=== PATIENT | female | born 1960 | race Caucasian/White ===

== ENCOUNTER 2019-07-10 13:17 | Outpatient (CLI) | payer MEDICARE, MEDICAID, SELFPAY ==
[2019-07-10 14:28] LABS: Basophils # 0.1 10^3/uL (0.0-0.1); Basophils % 0.5 %; Eosinophils # 0.1 10^3/uL (0.0-0.8); Eosinophils % 0.5 %; Hematocrit 43.6 % (37.0-47.0); Hemoglobin 13.7 g/dL (11.5-15.3); Lymphocytes # 3.3 10^3/uL (0.8-4.8); Lymphocytes % 25.8 %; Mean Corpuscular HGB Conc 31.4 g/dL (30.0-36.0); Mean Corpuscular Volume 92.2 fL (81-99); Mean Platelet Volume 10.1 fL (7.4-10.4); Monocytes # 0.8 10^3/uL (0.2-0.9); Monocytes % 6.1 %; Neutrophils # 8.5 10^3/uL (1.8-7.7); Neutrophils % 66.9 %; Nucleated Red Blood Cells % 0 %; Platelet Count 404 10^3/cmm (130-400); Red Blood Count 4.73 10^6/uL (4.1-5.3); Red Cell Distribution Width 15.1 % (12.1-15.1); White Blood Count 12.7 10^3/uL (4.0-10.0)
[2019-07-10 14:52] LABS: Alanine Aminotransferase 23 U/L (0-33); Albumin Level 4.7 g/dL (3.5-5.2); Alkaline Phosphatase 165 IU/L (35-105); Anion Gap 19.3 (5-19); Aspartate Amino Transferase 18 U/L (0-32); Blood Urea Nitrogen 16 mg/dL (6-20); Calcium 10.5 mg/Dl (8.6-10.0); Carbon Dioxide 23 mmol/L (22-29); Chloride 101 mmol/L (98-107); Globulin 3.1 g/dL (1.3-4.6); Glomerular Filtration Rate 56.7 mL/min (90-130); Glucose 107 mg/dL (74-109); Potassium 4.3 mmol/L (3.5-5.1); Sodium 139 mmol/L (136-145); Total Bilirubin 0.3 mg/dL (0.15-1.2); Total Protein 7.8 g/dL (6.6-8.7)
[2019-07-17 17:26] LABS: Chromogranin A 3579 ng/mL (25-140)
== END 2019-07-10 13:18 | disposition home or self-care (01) ==
LOC: ONCMED 13:58
PROVIDERS: Family Provider Physician Assistant; PCP Physician Assistant; Visit Provider Internal Medicine Medical Oncology
DX: C7A.8 Other malignant neuroendocrine tumors (principal)
CPT/HCPCS: 80053; 84260; 85025

== ENCOUNTER 2019-07-14 15:44 | Outpatient (CLI) | payer MEDICARE, MEDICAID, SELFPAY ==
[2019-07-14] MEDS: LANREOTIDE 120 MG/0.5 ML SUBCUT (16:38)
[2019-07-14 19:07] LABS: Add Urine Microscopic? NO
[2019-07-14 19:39] LABS: Bilirubin Urine 1+ (NEGATIVE); Blood Urine Trace (Negative); Glucose Urine UA Norm (Normal); Ketones Urine 1+ (Negative); Nitrate Urine Positive (Negative); Protein Urine Trace (Negative); Urine Appearance Cloudy (CLEAR); Urine Color Dark Yellow (Yellow); Urobilinogen Urine 1 mg/dL (Negative); pH Urine 5 (5-7)
[2019-07-14 19:40] LABS: Bacteria Urine 4+; Leukocyte Esterase Urine 2+ (Negative); RBC Urine RARE /hpf (0-2); WBC Urine >100 /hpf (0-5)
[2019-07-14 19:41] LABS: Add Urine Culture? Yes
--- NOTE | 2019-07-18 08:01 | ONC FU_ITS ---
Dr. Dempsey Patient Follow-Up Note Patient: Genoveva Kerr Unit #: [id number]: 1960 Dicatated By: Timo Dempsey M.D.Date of Visit:Jul 14, 2019 Onc Med Follow-up/Prog Note Chief Complaint: Pancreatic neuroendocrine tumor. History of Present Illness: This is a 58 year-old woman with metastatic pancreatic neuroendocrine tumor, WHO grade 2, stage IV (T4, Nx, M1). She had been having intermittent diarrhea for 2 years. She had been feeling tired all the time, and she also complained of persistent cough. She had seen Dr. Varner, and in November 2014 she had evaluation with CT abdomen/pelvis which showed a 2.3 x 3.5 x 3.4 cm homogeneous enhancing mass which appeared inseparable from the superior surface of the body of the pancreas. It was noted to abut the anterior margin of the celiac artery and anterior/superior margins of the common hepatic artery and splenic artery. The right hepatic lobe was noted to be enlarged, but there were no focal defects in the liver. Left adrenal gland showed a probable 9 mm adenoma. There was a 13 mm subpleural nodule in the anterior right lower lobe of uncertain significance. She was referred to Dr. Hare in [place]. Her subsequent evaluation included EUS in December, which apparently did confirm pancreatic neuroendocrine tumor. She had further evaluation with MRI, which showed 2 lesions in the liver, one of which showed typical findings of hemangioma. The other was felt to be possibly hemangioma versus possible metastatic lesion. There was no other evidence to suggest metastatic involvement. After discussion with patient, plan was made to proceed with subtotal left pancreatectomy with resection of the celiac arcade. In preparation for the procedure, she underwent endovascular coil occlusion of the common hepatic, proximal splenic, and distal celiac arteries on 04/05/2015. On 05/11/2015 she underwent exploratory laparotomy. At that time, she was noted to have a white nodule on the anterior surface of the stomach. It was located at the pylorus, and it measured 2 cm. It was removed by gastric wedge biopsy. Frozen section was consistent with neuroendocrine tumor. A needle core biopsy of the pancreas was obtained, but no further resection was attempted. Final pathology showed well-differentiated neuroendocrine tumor on both the gastric biopsy and the needle core biopsy of the pancreas. The Ki-67 on a pancreatic biopsy showed a labeling index of 3%, qualifying for WHO grade 2. I had seen her initially on 06/04/2015. At that time she complained of significant fatigue and she still had intermittent diarrhea. Her weight at that point was still down 25 lbs. She also reported having persistent cough, and she complained of having hot flashes and occasional sweating. Her subsequent laboratory evaluation did show a slightly elevated chromogranin A level at 11 nmol/L, normal range 0-5. VIP level was normal less than 13 pg/mL. 24-hour urine 5-HIAA also was normal at 4 mg, normal range up to 15 mg. She was admitted to the hospital on 08/14/2015 after presenting to the emergency room with intractable nausea and vomiting. She reported having postprandial pain in the epigastric area and she also reported having diarrhea. CT abdomen/pelvis reported small bowel mucosal thickening consistent with nonspecific enteritis. The duodenum was noted to be mildly dilated. There were no definite obstructive changes. A 1.3 cm lesion was noted at the right lung base, new from the previous studies. The pancreas was noted be obscured by artifact. However, I did review that study with one of our radiologists, and the pancreatic mass was not able be completely visualized because of interval placement of surgical clips, but it did appear to be similar to the previous study. There were a few small nodes in that area which appeared to be new. In January 2016 she was again admitted to the hospital with nausea/vomiting, abdominal pain, and diarrhea. CT abdomen/pelvis at that time showed fluid within the small bowel and colon without evidence of mesenteric lymphadenopathy or bowel wall thickening, felt to possibly reflect viral gastroenteritis. There was stable lymphadenopathy in the upper abdomen in the left adrenal nodule also appeared stable. There was stable reticulonodular interstitial thickening in the visualized portions of both lungs. There was no evidence of new metastatic disease. The illness resolved with conservative management. A repeat CT of the abdomen/pelvis on 07/17/2016 showed stable findings, and she continued on observation/expectant management. Her medical illnesses are otherwise limited to COPD and degenerative arthritis. She does have a history of smoking 1 pack of cigarettes daily for 20 years. She quit smoking in April 2015. INTERIM HISTORY: She was seen for a follow-up visit on 03/14/2018. At that point she had developed more consistent carcinoid type symptoms including hot flashes/sweating and diarrhea. Her chromogranin a level had increased significantly to 80 nmol/L compared to 35 nmol/L in December 2016. Her whole blood serotonin level was also elevated at 484/200 ng/mL. Her CT of the chest, abdomen, and pelvis showed new bilateral pulmonary nodules felt to be possibly postinflammatory or atypical infectious process versus metastatic disease. There were unchanged right lower lung zone tree-in-bud nodular opacities, and there was chronic emphysema. The abdomen/pelvis showed interval enlargement of the hepatic mass with development of new upper abdominal retroperitoneal and matias hepatis adenopathy. Given those findings, she began on treatment somatuline Depot 120 mg monthly. She received her initial injection on 05/02/2018 and she returned for a 2nd injection 05/30/2018. The 3rd was delayed until 07/15/2018. She had significant improvement in the hot flashes/sweating and in the diarrhea after starting the somatuline. She then continued treatment more consistently on a monthly schedule. Her repeat CT scans of the chest, abdomen, and pelvis on 04/04/2019 showed resolution of previously described pulmonary nodules. The abdomen/pelvis showed slight increase in the abdominal mass measuring 6.4 x 8.1 x 9.55 cm. It was reported to be in the left lobe of the liver, but it actually reflected the pancreatic neoplasm impinging on the liver. There were no other apparent areas of involvement. She is seen for a follow-up visit. She has been feeling okay, though she does have limited activity tolerance, and her energy has been gradually declining. She is still able to do light work. ECOG score is 1. Her appetite is still good. She has not had fever or night sweats. She has occasional flushing spells. She has shortness of breath. She says her inhalers are helping. She has cough associated with sinus drainage. She does not complain of chest pain. She does have some abdominal pain, and she has diarrhea, but just occasionally. Recently she has had some burning with urination. Her neck has been sore. She also has pain in her lower back, she says her hips have been hurting a little more. She has no focal neurologic symptoms. Medications: Advair Diskus 1 (250-50 mcg/dose) Aerosol Powder, Breath Activated Inhalation b.i.d., [facility] Vitamin C 1 - 2 Tablet (of 500 mg) Tablet, chewable Oral daily, Hydrocodone-Acetaminophen 1 (10-325 mg) Tablet Oral q 4 hours PRN, Imodium A-D 1 Capsule Oral PRN, Pantoprazole Sodium 1 Tablet Tablet Delayed Release Oral daily PRN, Tylenol Cold Max 2 tablespoonful(s) Liquid Oral b.i.d. Allergies: Codeine Sulfate Review of Systems: Constitutional - Her energy is slowly deteriorating. She does some light work at home. Her appetite is good and her weight is up a couple of pounds. No fever or chills. She has occasional hot flashes and sweating at night. ECOG score is 1, ENMT - She has sinus drainage. No mouth sores. No sore throat or difficulty swallowing, Hematologic/Lymphatic - No abnormal bruising or bleeding, Respiratory - She has shortness of breath. She has coughing fits. No pleuritic pain or hemoptysis, Cardiovascular - No angina pain. No palpitations, Gastrointestinal - No nausea or vomiting. She has occasional heartburn. She has occasional diarrhea. No blood in the stool or black stools. She has pain in her lower left quadrant, Genitourinary (F) - No dysuria or hematuria. No urinary frequency. No urgency or incontinence. She has burning and painful urination, Musculoskeletal - Her lower back and hip pain has been a little worse recently, due to the colder weather, Integumentary - No skin complications. , Neurologic - No headache. She occasionally feels dizzy and light-headed. No numbness/paresthesias or other focal neurologic symptoms, Psychiatric - No anxiety or depression. No insomnia. Vital Signs: Performed on Jul 14, 2019 15:50 Height - 64.00 in Weight - 135.4 lbs (HIGH) BSA - 1.66 sq.m BMI - 23.24 Temperature - 96.9 F (LOW) Pulse - 87 /min Respiration - 16 /min BP - 133/53 mm(hg) O2 Sat - 97 % Pain - 4 Physical Examination: Constitutional - She looks pretty good generally, Eyes - Sclerae nonicteric. Conjunctivae clear, ENMT - No lesions noted in the oral cavity, Hematologic/Lymphatic - No cervical, clavicular, or axillary adenopathy, Respiratory - Lungs show diminished air movement bilaterally. There are scattered rales present. There is no wheezing, Cardiovascular - Heart rhythm is regular. There is no murmur, gallop, or rub noted, Abdomen - Mildly distended but soft. Liver and spleen are not enlarged. There is no abdominal mass or ascites noted and there is no inguinal adenopathy, Extremities - No edema, Neurologic - There are no focal neurologic deficits noted. Lab/Imaging: CBC shows hemoglobin 13.7 g, white blood cell count 12,700, and platelet count 404,000. CHEM profile shows mildly elevated alkaline phosphatase at 165/105 IU/L. The other liver enzymes are normal. The neuroendocrine markers are pending. Impression: 1. The patient has well differentiated pancreatic neuroendocrine tumor, WHO grade 2, stage IV (T4, Nx, M1). She underwent endovascular coil embolization to common hepatic, proximal splenic, and distal celiac arteries on 04/05/2015 followed by exploratory laparotomy with gastric wedge biopsy and needle core biopsy of the pancreas on 05/11/2015. 2. She has significant anxiety/depression/emotional lability. 3. She also has signicant underlying COPD. Her other medical illnesses include: 4. Degenerative arthritis. 5. Tobacco dependence (cigarettes), in remission. Overall, her management had been difficult as she had been very inconsistent with her symptomatology and very inconsistent with her follow-up. However, as of her follow-up visit in March 2018 there was significant worsening of her carcinoid type symptoms, a significant increase in her chromogranin A level, and evidence of disease progression by CT scan. In May 2018 she started treatment with Somatuline Depot 120 mg monthly. During subsequent follow-up she had improvement in her neuroendocrine associated symptoms. Her chromogranin A levels, though, have remained significantly elevated. Her repeat CT scns in April 2019 showed just a slight further increase in the pancreatic area mass. Overall, she has been showing gradual decline in her activity tolerance, some component of which may related to her underlying COPD and to degenerative arthritis. Her neuroendocrine symptoms remain adequately controlled. Plan: She will continue treatment with Somatuline Depot 120 mg by intramuscular injection monthly. Her other medications will remain the same. We discussed her further treatment. With her underlying lung disease she would not be a good candidate for an extensive surgical procedure, and conservative management would appear to be the best option for her. Signed By: Timo Dempsey M.D. <<Signature on File>>
== END 2019-07-14 15:45 | disposition home or self-care (01) ==
PROVIDERS: Family Provider Physician Assistant; PCP Physician Assistant; Visit Provider Internal Medicine Medical Oncology
DX: C7A.8 Other malignant neuroendocrine tumors (principal); C7B.8 Other secondary neuroendocrine tumors; R30.0 Dysuria; J44.9 Chronic obstructive pulmonary disease, unspecified; M19.90 Unspecified osteoarthritis, unspecified site; F41.8 Other specified anxiety disorders; Z79.899 Other long term (current) drug therapy; Z79.51 Long term (current) use of inhaled steroids; Z79.891 Long term (current) use of opiate analgesic; Z87.891 Personal history of nicotine dependence; Z90.411 Acquired partial absence of pancreas
CPT/HCPCS: 81001; 81003; 83497; 87077; 87086; 87186; 96372; 99214; J1930

== ENCOUNTER 2019-08-18 13:42 | Outpatient (CLI) | payer MEDICARE, MEDICAID, SELFPAY ==
[2019-08-18] MEDS: LANREOTIDE 120 MG/0.5 ML SUBCUT (14:15)
== END 2019-08-18 13:43 | disposition home or self-care (01) ==
LOC: ONCMED 13:48
PROVIDERS: Family Provider Physician Assistant; PCP Physician Assistant; Visit Provider Internal Medicine Medical Oncology
DX: C7A.8 Other malignant neuroendocrine tumors (principal)
CPT/HCPCS: 96372; J1930

== ENCOUNTER 2019-09-16 15:53 | Outpatient (CLI) | payer MEDICARE, MEDICAID, SELFPAY ==
[2019-09-16] MEDS: LANREOTIDE 120 MG/0.5 ML SUBCUT (16:10)
== END 2019-09-16 15:54 | disposition home or self-care (01) ==
LOC: ONCMED 15:53
PROVIDERS: Family Provider Physician Assistant; PCP Physician Assistant; Visit Provider Internal Medicine Medical Oncology
DX: C7A.8 Other malignant neuroendocrine tumors (principal)
CPT/HCPCS: 96372; J1930

== ENCOUNTER 2019-10-14 09:35 | Outpatient (CLI) | payer MEDICARE, MEDICAID, SELFPAY ==
[2019-10-14 10:50] LABS: Basophils # 0.1 10^3/uL (0.0-0.1); Basophils % 0.8 %; Eosinophils # 0.1 10^3/uL (0.0-0.8); Hematocrit 41.7 % (37.0-47.0); Hemoglobin 12.7 g/dL (11.5-15.3); Lymphocytes # 3.2 10^3/uL (0.8-4.8); Lymphocytes % 36.9 %; Mean Corpuscular HGB Conc 30.5 g/dL (30.0-36.0); Mean Corpuscular Hemoglobin 27.3 pg (28.0-34.0); Mean Corpuscular Volume 89.7 fL (81-99); Mean Platelet Volume 9.4 fL (7.4-10.4); Monocytes # 0.4 10^3/uL (0.2-0.9); Monocytes % 4.5 %; Neutrophils # 4.9 10^3/uL (1.8-7.7); Neutrophils % 56.3 %; Nucleated Red Blood Cells % 0 %; Platelet Count 425 10^3/cmm (130-400); Red Blood Count 4.65 10^6/uL (4.1-5.3); Red Cell Distribution Width 14.9 % (12.1-15.1); White Blood Count 8.7 10^3/uL (4.0-10.0)
[2019-10-14 11:07] LABS: Alanine Aminotransferase 16 U/L (0-33); Albumin Level 4.2 g/dL (3.5-5.2); Alkaline Phosphatase 169 IU/L (35-105); Anion Gap 16.7 (5-19); Aspartate Amino Transferase 21 U/L (0-32); Blood Urea Nitrogen 20 mg/dL (8-23); Carbon Dioxide 25 mmol/L (22-29); Chloride 101 mmol/L (98-107); Globulin 3.7 g/dL (1.3-4.6); Glomerular Filtration Rate 63.9 mL/min (90-130); Glucose 112 mg/dL (65-115); Osmolality Calculated 285 mOsm/kg (285-295); Potassium 3.7 mmol/L (3.5-5.1); Sodium 139 mmol/L (136-145); Total Bilirubin 0.2 mg/dL (0.15-1.2); Total Protein 7.9 g/dL (6.6-8.7)
[2019-10-18 16:26] LABS: Chromogranin A 4902 ng/mL (25-140)
[2019-10-18 21:26] LABS: Serotonin Whole Blood 157 ng/mL (56-244)
== END 2019-10-14 09:36 | disposition home or self-care (01) ==
LOC: ONCMED 10-15 15:29
PROVIDERS: Family Provider Physician Assistant; PCP Physician Assistant; Visit Provider Internal Medicine Medical Oncology
DX: C7A.8 Other malignant neuroendocrine tumors (principal)
CPT/HCPCS: 80053; 84260; 85025; 86316

== ENCOUNTER 2019-10-16 11:02 | Outpatient (CLI) | payer MEDICARE, MEDICAID, SELFPAY ==
[2019-10-22 09:25] LABS: 24 Hour Urine Volume 1300 mL/24 h; 5-HIAA, 24 Hour Urine 2.7 mg/24 h (<=6.0)
== END 2019-10-16 11:03 | disposition home or self-care (01) ==
LOC: ONCMED 11:03
PROVIDERS: Family Provider Physician Assistant; PCP Physician Assistant; Visit Provider Internal Medicine Medical Oncology
DX: C7A.8 Other malignant neuroendocrine tumors (principal)
CPT/HCPCS: 83497

== ENCOUNTER 2019-10-27 12:55 | Outpatient (CLI) | payer MEDICARE, MEDICAID, SELFPAY ==
[2019-10-27] MEDS: LANREOTIDE 120 MG/0.5 ML SUBCUT (13:44)
--- NOTE | 2019-10-29 14:59 | ONC FU_ITS ---
Dr. Dempsey Patient Follow-Up Note Patient: Genoveva Kerr Unit #: [id number]: 1960 Dicatated By: Timo Dempsey M.D.Date of Visit:Oct 27, 2019 Onc Med Follow-up/Prog Note Chief Complaint: Pancreatic neuroendocrine tumor. History of Present Illness: This is a 59 year-old woman with metastatic pancreatic neuroendocrine tumor, WHO grade 2, stage IV (T4, Nx, M1). She had been having intermittent diarrhea for 2 years. She had been feeling tired all the time, and she also complained of persistent cough. She had seen Dr. Varner, and in November 2014 she had evaluation with CT abdomen/pelvis which showed a 2.3 x 3.5 x 3.4 cm homogeneous enhancing mass which appeared inseparable from the superior surface of the body of the pancreas. It was noted to abut the anterior margin of the celiac artery and anterior/superior margins of the common hepatic artery and splenic artery. The right hepatic lobe was noted to be enlarged, but there were no focal defects in the liver. Left adrenal gland showed a probable 9 mm adenoma. There was a 13 mm subpleural nodule in the anterior right lower lobe of uncertain significance. She was referred to Dr. Hare in [place]. Her subsequent evaluation included EUS in December, which apparently did confirm pancreatic neuroendocrine tumor. She had further evaluation with MRI, which showed 2 lesions in the liver, one of which showed typical findings of hemangioma. The other was felt to be possibly hemangioma versus possible metastatic lesion. There was no other evidence to suggest metastatic involvement. After discussion with patient, plan was made to proceed with subtotal left pancreatectomy with resection of the celiac arcade. In preparation for the procedure, she underwent endovascular coil occlusion of the common hepatic, proximal splenic, and distal celiac arteries on 04/05/2015. On 05/11/2015 she underwent exploratory laparotomy. At that time, she was noted to have a white nodule on the anterior surface of the stomach. It was located at the pylorus, and it measured 2 cm. It was removed by gastric wedge biopsy. Frozen section was consistent with neuroendocrine tumor. A needle core biopsy of the pancreas was obtained, but no further resection was attempted. Final pathology showed well-differentiated neuroendocrine tumor on both the gastric biopsy and the needle core biopsy of the pancreas. The Ki-67 on a pancreatic biopsy showed a labeling index of 3%, qualifying for WHO grade 2. I had seen her initially on 06/04/2015. At that time she complained of significant fatigue and she still had intermittent diarrhea. Her weight at that point was still down 25 lbs. She also reported having persistent cough, and she complained of having hot flashes and occasional sweating. Her subsequent laboratory evaluation did show a slightly elevated chromogranin A level at 11 nmol/L, normal range 0-5. VIP level was normal less than 13 pg/mL. 24-hour urine 5-HIAA also was normal at 4 mg, normal range up to 15 mg. She was admitted to the hospital on 08/14/2015 after presenting to the emergency room with intractable nausea and vomiting. She reported having postprandial pain in the epigastric area and she also reported having diarrhea. CT abdomen/pelvis reported small bowel mucosal thickening consistent with nonspecific enteritis. The duodenum was noted to be mildly dilated. There were no definite obstructive changes. A 1.3 cm lesion was noted at the right lung base, new from the previous studies. The pancreas was noted be obscured by artifact. However, I did review that study with one of our radiologists, and the pancreatic mass was not able be completely visualized because of interval placement of surgical clips, but it did appear to be similar to the previous study. There were a few small nodes in that area which appeared to be new. In January 2016 she was again admitted to the hospital with nausea/vomiting, abdominal pain, and diarrhea. CT abdomen/pelvis at that time showed fluid within the small bowel and colon without evidence of mesenteric lymphadenopathy or bowel wall thickening, felt to possibly reflect viral gastroenteritis. There was stable lymphadenopathy in the upper abdomen in the left adrenal nodule also appeared stable. There was stable reticulonodular interstitial thickening in the visualized portions of both lungs. There was no evidence of new metastatic disease. The illness resolved with conservative management. A repeat CT of the abdomen/pelvis on 07/17/2016 showed stable findings, and she continued on observation/expectant management. Her medical illnesses are otherwise limited to COPD and degenerative arthritis. She does have a history of smoking 1 pack of cigarettes daily for 20 years. She quit smoking in April 2015. INTERIM HISTORY: She was seen for a follow-up visit on 03/14/2018. At that point she had developed more consistent carcinoid type symptoms including hot flashes/sweating and diarrhea. Her chromogranin a level had increased significantly to 80 nmol/L compared to 35 nmol/L in December 2016. Her whole blood serotonin level was also elevated at 484/200 ng/mL. Her CT of the chest, abdomen, and pelvis showed new bilateral pulmonary nodules felt to be possibly postinflammatory or atypical infectious process versus metastatic disease. There were unchanged right lower lung zone tree-in-bud nodular opacities, and there was chronic emphysema. The abdomen/pelvis showed interval enlargement of the hepatic mass with development of new upper abdominal retroperitoneal and matias hepatis adenopathy. Given those findings, she began on treatment somatuline Depot 120 mg monthly. She received her initial injection on 05/02/2018 and she returned for a 2nd injection 05/30/2018. The 3rd was delayed until 07/15/2018. She had significant improvement in the hot flashes/sweating and in the diarrhea after starting the somatuline. Her repeat CT scans of the chest, abdomen, and pelvis on 04/04/2019 showed resolution of previously described pulmonary nodules. The abdomen/pelvis showed slight increase in the abdominal mass measuring 6.4 x 8.1 x 9.55 cm. It was reported to be in the left lobe of the liver, but it actually reflected the pancreatic neoplasm impinging on the liver. There were no other apparent areas of involvement. She continued treatment with somatuline on a monthly schedule. She is seen for a follow-up visit. He has been feeling pretty good generally. She does have some limitation in her activity tolerance, but she is able to do light work. Her ECOG score is 1. She says her appetite was messed up and she has lost a little weight. She has not had fever or hot flashes. She has sweating now and then. She tends to have plugged up sinuses in the morning. She has shortness of breath, and she has been spitting up yellow mucus. She does not complain of chest pain. She is sometimes nauseated in the morning. Her stomach sometimes feels tight. Bowel function has been adequate with prunes. She has had no diarrhea. She has no complaints. She has chronic pain, which varies from day-to-day. It is adequately managed with her medication. She has just occasional headache. She has no focal neurologic symptoms. She intermittently does have problems with nerves . Medications: Advair Diskus 1 (250-50 mcg/dose) Aerosol Powder, Breath Activated Inhalation b.i.d., [facility] Vitamin C 1 - 2 Tablet (of 500 mg) Tablet, chewable Oral daily, Hydrocodone-Acetaminophen 1 (10-325 mg) Tablet Oral q 4 hours PRN, Pantoprazole Sodium 1 Tablet Tablet Delayed Release Oral daily PRN Allergies: Codeine Sulfate Review of Systems: Constitutional - She is feeling good. She has pretty good energy. he has been doing some outside work. Her appetite is improving and her weight is stable. No fever, chills, or hot flashes. She is having occasional sweating episodes. ECOG score is 1, ENMT - She is taking Claritin for persitant sinus congestion/drainage. No mouth sores. No sore throat or difficulty swallowing, Hematologic/Lymphatic - No abnormal bruising or bleeding, Respiratory - She gets shortness of breath with exertion. No cough. No pleuritic pain or hemoptysis, Cardiovascular - No angina pain. No palpitations, Gastrointestinal - She has mild nausea in the morning. No vomiting. No heartburn or acid reflux. No diarrhea or constipation. No blood in the stool or black stools, Genitourinary (F) - No dysuria or hematuria. No urinary frequency. No urgency or incontinence, Musculoskeletal - Her pain is adequately managed with hydrocodone 10-325, Integumentary - No skin complications, Neurologic - No headache or dizziness. No numbness/paresthesias or other focal neurologic symptoms, Psychiatric - No anxiety or depression. No insomnia. Vital Signs: Performed on Oct 27, 2019 13:03 Height - 64.00 in Weight - 129.6 lbs (LOW) BSA - 1.63 sq.m BMI - 22.25 Temperature - 97.7 F (LOW) Pulse - 72 /min Respiration - 24 /min BP - 125/58 mm(hg) O2 Sat - 96 % Pain - 0 Physical Examination: Constitutional - She looks pretty good generally, Eyes - Sclerae nonicteric. Conjunctivae clear, ENMT - No lesions noted in the oral cavity, Hematologic/Lymphatic - No cervical, clavicular, or axillary adenopathy, Respiratory - Lungs sound clear with diminished air movement bilaterally, Cardiovascular - Heart rhythm is regular. There is no murmur, gallop, or rub noted, Abdomen - Mildly distended but soft. Liver and spleen are not enlarged. There is no abdominal mass or ascites noted and there is no inguinal adenopathy, Extremities - No edema, Neurologic - There are no focal neurologic deficits noted. Lab/Imaging: Test performed on Oct 14, 2019 09:35 Serotonin, Serum 157 ng/mL Sodium 139 mmol/L Potassium 3.7 mmol/L Chloride 101 mmol/L CO2 25 mmol/L Anion Gap 16.7 BUN 20 mg/dL Creatinine 0.9 mg/dL Cr Clearance (Est) 64.4500 mL/min eGFR 63.9 mL/min Glucose 112 mg/dL Calcium 10.0 mg/dL Protein, Total 7.9 g/dL Albumin 4.2 g/dL Globulin 3.7 g/dL Bilirubin, Total 0.2 mg/dL ALT (SGPT) 16 U/L AST (SGOT) 21 U/L Alkaline Phosphatase 169 IU/L WBC 8.7 10 3/uL RBC 4.65 10 6/uL HGB 12.7 g/dL HCT 41.7 % MCV 89.7 fL MCH 27.3 pg MCHC 30.5 g/dL RDW 14.9 % Platelet Count 425 10 3/cmm MPV 9.4 fL Neutrophils 4.9 10 3/uL Lymphocytes 3.2 10 3/uL Monocytes 0.4 10 3/uL Eosinophils 0.1 10 3/uL Basophils 0.1 10 3/uL Neutrophil % 56.3 % Lymphocyte % 36.9 % Monocyte % 4.5 % Eosinophil % 1.0 % Basophils % 0.8 % Chromogranin A 4902 ng/mL Impression: 1. The patient has well differentiated pancreatic neuroendocrine tumor, WHO grade 2, stage IV (T4, Nx, M1). She underwent endovascular coil embolization to common hepatic, proximal splenic, and distal celiac arteries on 04/05/2015 followed by exploratory laparotomy with gastric wedge biopsy and needle core biopsy of the pancreas on 05/11/2015. 2. She has significant anxiety/depression/emotional lability. 3. She also has signicant underlying COPD. Her other medical illnesses include: 4. Degenerative arthritis. 5. Tobacco dependence (cigarettes), in remission. Overall, her management had been difficult as she had been very inconsistent with her symptomatology and very inconsistent with her follow-up. However, as of her follow-up visit in March 2018 there was significant worsening of her carcinoid type symptoms, a significant increase in her chromogranin A level, and evidence of disease progression by CT scan. In May 2018 she started treatment with Somatuline Depot 120 mg monthly. During subsequent follow-up she had improvement in her neuroendocrine associated symptoms. Her chromogranin A levels, though, have remained significantly elevated. Her repeat CT scns in April 2019 showed just a slight further increase in the pancreatic area mass. Overall, she has been showing gradual decline in her activity tolerance, some component of which may related to her underlying COPD and to degenerative arthritis. Her neuroendocrine symptoms remain adequately controlled. Plan: She continues treatment with Somatuline Depot 120 mg by intramuscular injection monthly. She will be given a prescription for flonase nasal spray, and she also will be given antibiotic coverage for sinusitis. Her other medications will remain the same. I will see her again in 3 months. Signed By: Timo Dempsey M.D. <<Signature on File>>
== END 2019-10-27 12:56 | disposition home or self-care (01) ==
LOC: ONCMED 12:55
PROVIDERS: Family Provider Physician Assistant; PCP Physician Assistant; Visit Provider Internal Medicine Medical Oncology
DX: C7A.8 Other malignant neuroendocrine tumors (principal); C25.4 Malignant neoplasm of endocrine pancreas; F41.8 Other specified anxiety disorders; J44.9 Chronic obstructive pulmonary disease, unspecified; M19.90 Unspecified osteoarthritis, unspecified site; F17.211 Nicotine dependence, cigarettes, in remission; J32.9 Chronic sinusitis, unspecified; Z79.899 Other long term (current) drug therapy
CPT/HCPCS: 96372; 99214; J1930

== ENCOUNTER 2019-12-02 13:15 | Outpatient (CLI) | payer MEDICARE, MEDICAID, SELFPAY ==
[2019-12-02] MEDS: LANREOTIDE 120 MG/0.5 ML SUBCUT (13:35)
== END 2019-12-02 13:16 | disposition home or self-care (01) ==
LOC: ONCMED 13:18
PROVIDERS: Family Provider Physician Assistant; PCP Physician Assistant; Visit Provider Internal Medicine Medical Oncology
DX: C25.4 Malignant neoplasm of endocrine pancreas (principal); C7A.8 Other malignant neuroendocrine tumors; J44.9 Chronic obstructive pulmonary disease, unspecified; M19.90 Unspecified osteoarthritis, unspecified site; Z79.899 Other long term (current) drug therapy
CPT/HCPCS: 96372; J1930

== ENCOUNTER 2020-01-01 13:38 | Outpatient (CLI) | payer MEDICARE, MEDICAID, SELFPAY ==
[2020-01-01] MEDS: LANREOTIDE 120 MG/0.5 ML SUBCUT (14:05)
== END 2020-01-01 13:39 | disposition home or self-care (01) ==
LOC: ONCMED 13:43
PROVIDERS: PCP Physician Assistant; Visit Provider Internal Medicine Medical Oncology
DX: C25.4 Malignant neoplasm of endocrine pancreas (principal); C7A.8 Other malignant neuroendocrine tumors; J44.9 Chronic obstructive pulmonary disease, unspecified; M19.90 Unspecified osteoarthritis, unspecified site; F41.9 Anxiety disorder, unspecified; F32.9 Major depressive disorder, single episode, unspecified; F17.211 Nicotine dependence, cigarettes, in remission
CPT/HCPCS: 96372; J1930

== ENCOUNTER 2020-01-28 13:14 | Outpatient (CLI) | payer MEDICARE, MEDICAID, SELFPAY ==
[2020-01-28 15:04] LABS: Basophils # 0.1 10^3/uL (0.0-0.1); Basophils % 0.5 %; Eosinophils % 0.4 %; Hematocrit 40.7 % (37.0-47.0); Hemoglobin 12.6 g/dL (11.5-15.3); Lymphocytes # 2.1 10^3/uL (0.8-4.8); Lymphocytes % 20.4 %; Mean Corpuscular Hemoglobin 28.3 pg (28.0-34.0); Mean Corpuscular Volume 91.5 fL (81-99); Mean Platelet Volume 10.1 fL (7.4-10.4); Monocytes # 0.4 10^3/uL (0.2-0.9); Monocytes % 3.8 %; Neutrophils # 7.52 10^3/uL (1.8-7.7); Neutrophils % 74.6 %; Nucleated Red Blood Cells % 0 %; Platelet Count 352 10^3/cmm (130-400); Red Blood Count 4.45 10^6/uL (4.1-5.3); Red Cell Distribution Width 15.5 % (12.1-15.1); White Blood Count 10.1 10^3/uL (4.0-10.0)
[2020-01-28 15:22] LABS: Alanine Aminotransferase 62 U/L (0-33); Albumin Level 4.5 g/dL (3.5-5.2); Alkaline Phosphatase 172 IU/L (35-105); Blood Urea Nitrogen 13 mg/dL (8-23); Calcium 8.9 mg/dL (8.5-10.5); Carbon Dioxide 21 mmol/L (22-29); Chloride 102 mmol/L (98-107); Globulin 3.7 g/dL (1.3-4.6); Glomerular Filtration Rate 73.2 mL/min (90-130); Glucose 233 mg/dL (65-115); Osmolality Calculated 286 mOsm/kg (285-295); Sodium 136 mmol/L (136-145); Total Bilirubin 0.2 mg/dL (0.15-1.2); Total Protein 8.2 g/dL (6.6-8.7)
[2020-01-28 16:10] LABS: Anion Gap 17.1 (5-19); Aspartate Amino Transferase 61 U/L (0-32); Potassium 4.1 mmol/L (3.5-5.1)
[2020-02-02 09:45] LABS: Chromogranin A 5794 ng/mL (25-140)
[2020-02-05 11:10] LABS: Serotonin Whole Blood 186 ng/mL (56-244)
== END 2020-01-28 13:15 | disposition home or self-care (01) ==
LOC: ONCMED 15:17
PROVIDERS: PCP Physician Assistant; Visit Provider Internal Medicine Medical Oncology
DX: C7A.8 Other malignant neuroendocrine tumors (principal)
CPT/HCPCS: 80053; 84260; 85025; 86316

== ENCOUNTER 2020-02-11 14:22 | Outpatient (CLI) | payer MEDICARE, MEDICAID, SELFPAY ==
[2020-02-11] MEDS: LANREOTIDE 120 MG/0.5 ML SUBCUT (15:42)
--- NOTE | 2020-02-14 17:35 | ONC FU_ITS ---
Esteban Sifuentes Patient Note Patient: Genoveav Kerr Unit #: [id number]: 1960 Dictated By: Bud MendozaDate of Visit: Feb 11, 2020 Onc MED Follow-Up/Prog Note Chief Complaint: Pancreatic neuroendocrine tumor. History of Present Illness: Ms Kerr is a 59 year-old woman with metastatic pancreatic neuroendocrine tumor, WHO grade 2, stage IV (T4, Nx, M1). She had been having intermittent diarrhea for 2 years. She had been feeling tired all the time, and she also complained of persistent cough. She had seen Dr. Varner, and in November 2014 she had evaluation with CT abdomen/pelvis which showed a 2.3 x 3.5 x 3.4 cm homogeneous enhancing mass which appeared inseparable from the superior surface of the body of the pancreas. It was noted to abut the anterior margin of the celiac artery and anterior/superior margins of the common hepatic artery and splenic artery. The right hepatic lobe was noted to be enlarged, but there were no focal defects in the liver. Left adrenal gland showed a probable 9 mm adenoma. There was a 13 mm subpleural nodule in the anterior right lower lobe of uncertain significance. She was referred to Dr. Hare in [place]. Her subsequent evaluation included EUS in December, which apparently did confirm pancreatic neuroendocrine tumor. She had further evaluation with MRI, which showed 2 lesions in the liver, one of which showed typical findings of hemangioma. The other was felt to be possibly hemangioma versus possible metastatic lesion. There was no other evidence to suggest metastatic involvement. After discussion with patient, plan was made to proceed with subtotal left pancreatectomy with resection of the celiac arcade. In preparation for the procedure, she underwent endovascular coil occlusion of the common hepatic, proximal splenic, and distal celiac arteries on 04/05/2015. On 05/11/2015 she underwent exploratory laparotomy. At that time, she was noted to have a white nodule on the anterior surface of the stomach. It was located at the pylorus, and it measured 2 cm. It was removed by gastric wedge biopsy. Frozen section was consistent with neuroendocrine tumor. A needle core biopsy of the pancreas was obtained, but no further resection was attempted. Final pathology showed well-differentiated neuroendocrine tumor on both the gastric biopsy and the needle core biopsy of the pancreas. The Ki-67 on a pancreatic biopsy showed a labeling index of 3%, qualifying for WHO grade 2. Dr Dempsey had seen her initially on 06/04/2015. At that time she complained of significant fatigue and she still had intermittent diarrhea. Her weight at that point was still down 25 lbs. She also reported having persistent cough, and she complained of having hot flashes and occasional sweating. Her subsequent laboratory evaluation did show a slightly elevated chromogranin A level at 11 nmol/L, normal range 0-5. VIP level was normal less than 13 pg/mL. 24-hour urine 5-HIAA also was normal at 4 mg, normal range up to 15 mg. She was admitted to the hospital on 08/14/2015 after presenting to the emergency room with intractable nausea and vomiting. She reported having postprandial pain in the epigastric area and she also reported having diarrhea. CT abdomen/pelvis reported small bowel mucosal thickening consistent with nonspecific enteritis. The duodenum was noted to be mildly dilated. There were no definite obstructive changes. A 1.3 cm lesion was noted at the right lung base, new from the previous studies. The pancreas was noted be obscured by artifact. However, I did review that study with one of our radiologists, and the pancreatic mass was not able be completely visualized because of interval placement of surgical clips, but it did appear to be similar to the previous study. There were a few small nodes in that area which appeared to be new. In January 2016 she was again admitted to the hospital with nausea/vomiting, abdominal pain, and diarrhea. CT abdomen/pelvis at that time showed fluid within the small bowel and colon without evidence of mesenteric lymphadenopathy or bowel wall thickening, felt to possibly reflect viral gastroenteritis. There was stable lymphadenopathy in the upper abdomen in the left adrenal nodule also appeared stable. There was stable reticulonodular interstitial thickening in the visualized portions of both lungs. There was no evidence of new metastatic disease. The illness resolved with conservative management. A repeat CT of the abdomen/pelvis on 07/17/2016 showed stable findings, and she continued on observation/expectant management. Her medical illnesses are otherwise limited to COPD and degenerative arthritis. She does have a history of smoking 1 pack of cigarettes daily for 20 years. She quit smoking in April 2015. INTERIM HISTORY: She was seen for a follow-up visit on 03/14/2018. At that point she had developed more consistent carcinoid type symptoms including hot flashes/sweating and diarrhea. Her chromogranin a level had increased significantly to 80 nmol/L compared to 35 nmol/L in December 2016. Her whole blood serotonin level was also elevated at 484/200 ng/mL. Her CT of the chest, abdomen, and pelvis showed new bilateral pulmonary nodules felt to be possibly postinflammatory or atypical infectious process versus metastatic disease. There were unchanged right lower lung zone tree-in-bud nodular opacities, and there was chronic emphysema. The abdomen/pelvis showed interval enlargement of the hepatic mass with development of new upper abdominal retroperitoneal and matias hepatis adenopathy. Given those findings, she began on treatment somatuline Depot 120 mg monthly. She received her initial injection on 05/02/2018 and she returned for a 2nd injection 05/30/2018. The 3rd was delayed until 07/15/2018. She had significant improvement in the hot flashes/sweating and in the diarrhea after starting the somatuline. Her repeat CT scans of the chest, abdomen, and pelvis on 04/04/2019 showed resolution of previously described pulmonary nodules. The abdomen/pelvis showed slight increase in the abdominal mass measuring 6.4 x 8.1 x 9.55 cm. It was reported to be in the left lobe of the liver, but it actually reflected the pancreatic neoplasm impinging on the liver. There were no other apparent areas of involvement. She continued treatment with somatuline on a monthly schedule. Ms Aguilera is here today for followup. She is due for monthly somatuline. She states she is doing ok today. 2 weeks ago she had nasusea/vomiting and diarrhea/dizziness as a sudden onset. She states she was sick for a couple of days but those symptoms have now resolved. She has no new concerns today. She did have her labs drawn on 01/28/2020 and then got the bug and had to reschedule her appointment. She states her breathing is good and she has not had orthopnea. She denies chest pain or palpitations. She is not having new abdominal pain or bowel/bladder changes. Her ECOG is 1. Past Medical History: Chronic obstructive pulmonary disease Degenerative arthritis Past Surgical History: Flu vaccine in 2016 Exploratory laparotomy with gastric wedge biopsy and needle core biopsy of the pancreas in 2014 Endovascular coil occlusion of common hepatic, proximal splenic, and distal celiac arteries in 2014 Allergies: Codeine Sulfate Medications: Advair Diskus 1 (250-50 mcg/dose) Aerosol Powder, Breath Activated Inhalation b.i.d. [facility] Vitamin C 1 - 2 Tablet (of 500 mg) Tablet, chewable Oral daily Hydrocodone-Acetaminophen 1 (10-325 mg) Tablet Oral q 4 hours PRN Pantoprazole Sodium 1 Tablet (of 40 mg) Tablet Delayed Release Oral daily PRN Family History: Ms. Kerr's mother is alive. Ms. Kerr's father is alive. Ms. Kerr has 1 brother who is alive. She has 1 sister who is alive. Family history is unremarkable. Social History: Ms. Kerr is single and she is unemployed. Ms. Kerr no longer smokes but had smoked 1.0 pack/day for 20 years. She has no history of drinking. Ms. Kerr reports the following support systems: lives in own house, supportive family/friends willing to assist with needs, and adequate transportation available for expected visits. Her diet consists of regular meals. She indicates her activity level as: daily activities. Review Of Symptoms: Constitutional Denies fevers, chills, night sweats, excessive fatigue or weight loss. Allergic/Immunologic No reactions. ENMT Denies changes in hearing, sore throat, mouth sores, difficulty or changes in swallowing ability, and/or sinus drainage. Endocrine No diabetes, thyroid disease or hormone replacement. Denies hot flashes or night sweats. Hematologic/Lymphatic Denies easy bruising or bleeding. The patient denies any tender or palpable lymph nodes. Respiratory Some dyspnea on exertion-chronic. Denies chest pain, or hemoptysis. Denies orthopnea. Cardiovascular Denies anginal chest pain, palpitations or orthopnea. Gastrointestinal Has had some diarrhea. Denies nausea, vomiting, GI bleeding, or constipation. Denies change in bowel habits and/or stool color, no heartburn or early satiety. Thinks she has had a virus 2 weeks ago, but symptoms resolved now. Genitourinary (F) No hematuria, hesitancy, incontinence, vaginal bleeding, discharge or other problems with urination. Musculoskeletal Denies joint pain, swelling or redness. No decreased range of motion. Integumentary Denies chronic rashes, inflammation, ulcerations or skin changes. Neurologic Denies headache, blurred vision, and no areas of focal weakness or numbness. Psychiatric Denies depression, mi or mood swings. Vital Signs: Performed on Feb 11, 2020 14:51 Height - 64.00 in Weight - 128.8 lbs (LOW) BSA - 1.62 sq.m BMI - 22.11 Temperature - 97.4 F (LOW) Pulse - 78 /min Respiration - 17 /min BP - 129/79 mm(hg) O2 Sat - 94 % (LOW) Pain - 5,1 - No physically strenuous activity, but ambulatory and able to carry out light or sedentary work (e.g. office work, light house work). (ECOG) Physical Examination: Constitutional Alert, oriented, no acute distress. Skin pink, warm and dry. Head Normocephalic; atraumatic. Eyes Conjunctivae and sclerae are clear and without icterus. Pupils are reactive and equal. Neck Supple without masses or thyromegaly. No jugular venous distension. Respiratory Lungs are clear to auscultation without rhonchi or wheezing. Cardiovascular Regular rate and rhythm of heart without murmurs,clicks, gallops or rubs. Back/Spine Non-tender to palpation. Extremities No visible deformities, no cyanosis, clubbing or edema. Musculoskeletal No tenderness or swelling, normal range of motion without obvious weakness. Integumentary No rashes or lesions. Neurologic No sensory or motor deficits, normal cerebellar function, normal gait. Psychiatric Alert and oriented times three. Coherent speech. Verbalizes understanding of our discussions today. Laboratory:Test performed on Jan 28, 2020 13:14 Serotonin, Serum 186 ng/mL Sodium 136 mmol/L Potassium 4.1 mmol/L Chloride 102 mmol/L CO2 21 mmol/L Anion Gap 17.1 BUN 13 mg/dL Creatinine 0.8 mg/dL Cr Clearance (Est) 69.4000 mL/min eGFR 73.2 mL/min Glucose 233 mg/dL Calcium 8.9 mg/dL Protein, Total 8.2 g/dL Albumin 4.5 g/dL Globulin 3.7 g/dL Bilirubin, Total 0.2 mg/dL ALT (SGPT) 62 U/L AST (SGOT) 61 U/L Alkaline Phosphatase 172 IU/L WBC 10.1 10 3/uL RBC 4.45 10 6/uL HGB 12.6 g/dL HCT 40.7 % MCV 91.5 fL MCH 28.3 pg MCHC 31.0 g/dL RDW 15.5 % Platelet Count 352 10 3/cmm MPV 10.1 fL Neutrophils 7.52 10 3/uL Lymphocytes 2.1 10 3/uL Monocytes 0.4 10 3/uL Eosinophils 0.0 10 3/uL Basophils 0.1 10 3/uL Neutrophil % 74.6 % Lymphocyte % 20.4 % Monocyte % 3.8 % Eosinophil % 0.4 % Basophils % 0.5 % NRBC % 0 % Chromogranin A 5794 ng/mL Impression: 1. The patient has well differentiated pancreatic neuroendocrine tumor, WHO grade 2, stage IV (T4, Nx, M1). She underwent endovascular coil embolization to common hepatic, proximal splenic, and distal celiac arteries on 04/05/2015 followed by exploratory laparotomy with gastric wedge biopsy and needle core biopsy of the pancreas on 05/11/2015. 2. She has significant anxiety/depression/emotional lability. 3. She also has signicant underlying COPD. Her other medical illnesses include: 4. Degenerative arthritis. 5. Tobacco dependence (cigarettes), in remission. Overall, her management had been difficult as she had been very inconsistent with her symptomatology and very inconsistent with her follow-up. However, as of her follow-up visit in March 2018 there was significant worsening of her carcinoid type symptoms, a significant increase in her chromogranin A level, and evidence of disease progression by CT scan. In May 2018 she started treatment with Somatuline Depot 120 mg monthly. During subsequent follow-up she had improvement in her neuroendocrine associated symptoms. Her chromogranin A levels, though, have remained significantly elevated. Her repeat CT scns in April 2019 showed just a slight further increase in the pancreatic area mass. Overall, she has been showing gradual decline in her activity tolerance, some component of which may related to her underlying COPD and to degenerative arthritis. Her neuroendocrine symptoms remain adequately controlled. Plan: 1. Proceed with Somatuline Depot 120 mg by intramuscular injection monthly. 2. Labs from January 28, 2020 were reviewed in detail and discussed with Ms. De Jesus and a copy was given to her. WBC 10.1, hemoglobin 12.6, platelets 10 52,000 potassium 4.1 random glucose was 233 creatinine 0.8 ALT was 62 previously on October 14, 2027 was 16, AST was 61 on January 28, 2020 and was 21 on October 14, 2019. Her serotonin was 186 on 01/28/2020. Chromogranin A was 5794 on January 28, 2020 compared to 4902 on October 14, 2019. Her last CT imaging was CT of the chest abdomen pelvis with contrast on April 04, 2019. I have asked for follow-up CT of the chest abdomen pelvis with contrast. Given the elevation of her LFTs and chromogranin A level and the fact that it has been [address] I feel she warrants follow-up. 3. Continue current medications. 4. We will plan to follow-up after the results of her CT are obtained and reviewed. 5. Ms Aguilera was instructed to contact us in interim should arise Signed By: Bud Mendoza-, AOCNP Timo Dempsey MD <<Signature on File>>
== END 2020-02-11 14:23 | disposition home or self-care (01) ==
LOC: ONCMED 14:27
PROVIDERS: PCP Physician Assistant; Visit Provider Nurse Practitioner
DX: C25.4 Malignant neoplasm of endocrine pancreas (principal); C7A.8 Other malignant neuroendocrine tumors; J44.9 Chronic obstructive pulmonary disease, unspecified; M19.90 Unspecified osteoarthritis, unspecified site; F17.211 Nicotine dependence, cigarettes, in remission
CPT/HCPCS: 96372; 99214; J1930

== ENCOUNTER 2020-03-03 12:40 | Outpatient (CLI) | payer MEDICARE, MEDICAID, SELFPAY ==
--- NOTE | 2020-03-03 | CT_ITS ---
WS: [id number] CT CHEST, ABDOMEN, AND PELVIS TECHNIQUE: Contrast-enhanced CT of the chest, abdomen, and pelvis with coronal and sagittal reformatt ed images. CLINICAL INFORMATION: COMPARE TO 04/19 - ELEVATED LFTS, PANCREATIC NEUROENDOCRINE COMPARISON: Multiple prior examinations including April 04, 2019, 03 26,018, 017, January 30. PET/CT 3 5016 DLP: [address] scans [address] [facility] use at least one of these dose optimization techniques: automat ed exposure control; mA and/or kV adjustment per patient size (includes targeted exams where dose is matched to clinical indication); or iterative reconstruction. CT CHEST: Moderate chronic emphysematous changes. Chronic interstitial thickening. No acute pulmonary infiltrat es. Stable tree-in-bud opacities more prominent in the right middle lobe, lingula and both upper lobe s. No focal pneumonia. Normal thyroid gland. No axillary lymphadenopathy. Prominent right hilar lymph node measuring 10 mm unchanged. Normal caliber thoracic aorta and proximal main pulmonary arteries. 3 mm noncalcified pulmonary nodule right upper lobe is unchanged. Stable fibrotic appearing opacity i n the left lower lobe measuring 4 mm unchanged. No evidence of progressive disease in the chest. CT ABDOMEN AND PELVIS: Heterogeneous enhancing left hepatic mass consistent with known neuroendocrine tumor. This appears en larged since April 04, 2019 and today measures 7.8 x 9.7 x 8.8 cm. Increased mass effect on the lef t hepatic lobe. Left portal vein is compressed but appears patent. Splenic vein is patent. Heterogene ous cystic change and calcification within the large hepatic mass. Normal spleen. Adrenal glands are normal. Normal renal parenchymal enhancement. No hydronephrosis. Fluid distended gallbladder. Multiple partially calcified fibroids in the pelvis. Lumbar curve convex left. Left. No free fluid. S lightly progressed upper abdominal and aorta caval lymphadenopathy. Aorto caval lymph node measures 1 8 mm. No inguinal lymphadenopathy. CT/CT chest abd pel w con* IMPRESSION: 1. A few noncalcified subcentimeter pulmonary nodules are stable. No evidence of progressed disease in the chest. 2. Stable enlarged right hilar lymph node measuring 10 mm. 3. Interval increase in size of the large left hepatic mass today measuring 7. 8 x 9.7 x 8.8 cm. Mass effect on the left hepatic lobe. 4. Slightly progressed upper abdominal and aortocaval lymphadenopathy the larg est aortocaval measuring 18 mm. 5. Fluid distended gallbladder. 6. Calcified multi fibroid uterus
[2020-03-03] MEDS: iohexol 300 mg/mL 50 mL Btl PO (14:23)
[2020-03-03] MEDS: iohexol 300 mg/mL 100 mL Btl IV (14:23)
== END 2020-03-03 12:41 | disposition home or self-care (01) ==
LOC: RADWPI 12:47
PROVIDERS: PCP Physician Assistant; Visit Provider Nurse Practitioner
DX: C7A.8 Other malignant neuroendocrine tumors (principal); R94.5 Abnormal results of liver function studies; R91.8 Other nonspecific abnormal finding of lung field; R59.9 Enlarged lymph nodes, unspecified; D25.9 Leiomyoma of uterus, unspecified; R59.0 Localized enlarged lymph nodes
CPT/HCPCS: 71260; 74177; Q9967

== ENCOUNTER 2020-03-18 11:22 | Outpatient (CLI) | payer MEDICARE, MEDICAID, SELFPAY ==
[2020-03-18] MEDS: LANREOTIDE 120 MG/0.5 ML SUBCUT (12:34)
--- NOTE | 2020-03-29 19:52 | ONC FU_ITS ---
[facility]eb[facility] Sifuentes Patient Note Patient: Genoveva Kerr Unit #: [id number]: [id number] Dictated By: Bud MendozaDate of Visit: Mar 18, 2020 Onc MED Follow-Up/Prog Note Chief Complaint: Pancreatic neuroendocrine tumor. History of Present Illness: Ms Kerr is a 59 year-old woman with metastatic pancreatic neuroendocrine tumor, WHO grade 2, stage IV (T4, Nx, M1). She had been having intermittent diarrhea for 2 years. She had been feeling tired all the time, and she also complained of persistent cough. She had seen Dr. Varner, and in November 2014 she had evaluation with CT abdomen/pelvis which showed a 2.3 x 3.5 x 3.4 cm homogeneous enhancing mass which appeared inseparable from the superior surface of the body of the pancreas. It was noted to abut the anterior margin of the celiac artery and anterior/superior margins of the common hepatic artery and splenic artery. The right hepatic lobe was noted to be enlarged, but there were no focal defects in the liver. Left adrenal gland showed a probable 9 mm adenoma. There was a 13 mm subpleural nodule in the anterior right lower lobe of uncertain significance. She was referred to Dr. Hare in [place]. Her subsequent evaluation included EUS in December, which apparently did confirm pancreatic neuroendocrine tumor. She had further evaluation with MRI, which showed 2 lesions in the liver, one of which showed typical findings of hemangioma. The other was felt to be possibly hemangioma versus possible metastatic lesion. There was no other evidence to suggest metastatic involvement. After discussion with patient, plan was made to proceed with subtotal left pancreatectomy with resection of the celiac arcade. In preparation for the procedure, she underwent endovascular coil occlusion of the common hepatic, proximal splenic, and distal celiac arteries on 04/05/2015. On 05/11/2015 she underwent exploratory laparotomy. At that time, she was noted to have a white nodule on the anterior surface of the stomach. It was located at the pylorus, and it measured 2 cm. It was removed by gastric wedge biopsy. Frozen section was consistent with neuroendocrine tumor. A needle core biopsy of the pancreas was obtained, but no further resection was attempted. Final pathology showed well-differentiated neuroendocrine tumor on both the gastric biopsy and the needle core biopsy of the pancreas. The Ki-67 on a pancreatic biopsy showed a labeling index of 3%, qualifying for WHO grade 2. Dr Dempsey had seen her initially on 06/04/2015. At that time she complained of significant fatigue and she still had intermittent diarrhea. Her weight at that point was still down 25 lbs. She also reported having persistent cough, and she complained of having hot flashes and occasional sweating. Her subsequent laboratory evaluation did show a slightly elevated chromogranin A level at 11 nmol/L, normal range 0-5. VIP level was normal less than 13 pg/mL. 24-hour urine 5-HIAA also was normal at 4 mg, normal range up to 15 mg. She was admitted to the hospital on 08/14/2015 after presenting to the emergency room with intractable nausea and vomiting. She reported having postprandial pain in the epigastric area and she also reported having diarrhea. CT abdomen/pelvis reported small bowel mucosal thickening consistent with nonspecific enteritis. The duodenum was noted to be mildly dilated. There were no definite obstructive changes. A 1.3 cm lesion was noted at the right lung base, new from the previous studies. The pancreas was noted be obscured by artifact. However, I did review that study with one of our radiologists, and the pancreatic mass was not able be completely visualized because of interval placement of surgical clips, but it did appear to be similar to the previous study. There were a few small nodes in that area which appeared to be new. In January 2016 she was again admitted to the hospital with nausea/vomiting, abdominal pain, and diarrhea. CT abdomen/pelvis at that time showed fluid within the small bowel and colon without evidence of mesenteric lymphadenopathy or bowel wall thickening, felt to possibly reflect viral gastroenteritis. There was stable lymphadenopathy in the upper abdomen in the left adrenal nodule also appeared stable. There was stable reticulonodular interstitial thickening in the visualized portions of both lungs. There was no evidence of new metastatic disease. The illness resolved with conservative management. A repeat CT of the abdomen/pelvis on 07/17/2016 showed stable findings, and she continued on observation/expectant management. Her medical illnesses are otherwise limited to COPD and degenerative arthritis. She does have a history of smoking 1 pack of cigarettes daily for 20 years. She quit smoking in April 2015. INTERIM HISTORY: She was seen for a follow-up visit on 03/14/2018. At that point she had developed more consistent carcinoid type symptoms including hot flashes/sweating and diarrhea. Her chromogranin a level had increased significantly to 80 nmol/L compared to 35 nmol/L in December 2016. Her whole blood serotonin level was also elevated at 484/200 ng/mL. Her CT of the chest, abdomen, and pelvis showed new bilateral pulmonary nodules felt to be possibly postinflammatory or atypical infectious process versus metastatic disease. There were unchanged right lower lung zone tree-in-bud nodular opacities, and there was chronic emphysema. The abdomen/pelvis showed interval enlargement of the hepatic mass with development of new upper abdominal retroperitoneal and matias hepatis adenopathy. Given those findings, she began on treatment somatuline Depot 120 mg monthly. She received her initial injection on 05/02/2018 and she returned for a 2nd injection 05/30/2018. The 3rd was delayed until 07/15/2018. She had significant improvement in the hot flashes/sweating and in the diarrhea after starting the somatuline. Her repeat CT scans of the chest, abdomen, and pelvis on 04/04/2019 showed resolution of previously described pulmonary nodules. The abdomen/pelvis showed slight increase in the abdominal mass measuring 6.4 x 8.1 x 9.55 cm. It was reported to be in the left lobe of the liver, but it actually reflected the pancreatic neoplasm impinging on the liver. There were no other apparent areas of involvement. She continued treatment with somatuline on a monthly schedule. Ms Aguilera is here today for followup. She is due for monthly somatuline. She was seen in January 2020 and was found to have elevation of her LFTs and chromogranin A level. At that point her last CT of the chest abdomen pelvis was April 04, 2019. Since that visit she has had follow-up CT. CT of the chest abdomen pelvis with contrast was performed on March 03, 2020. It reports interval increase in the size of the large left hepatic mass measuring 7.8 x 9.7 x 8.8 cm with mass-effect on the left hepatic lobe. There is slightly progressed upper abdominal and aortocaval lymphadenopathy the largest aortocaval measuring 18 mm. There is fluid distended gallbladder. Calcified multi-fibroid uterus. Stable enlarged right hilar lymph node measuring 10 mm and a few noncalcified subcentimeter pulmonary nodules are stable with no evidence of disease progression in the chest. She denies any new concerns today. She denies any fever or chills. She is accompanied by her family member today. We did review the CT findings as above and a copy was given to her. Her ECOG is 1. Past Medical History: Chronic obstructive pulmonary disease Degenerative arthritis Past Surgical History: Flu vaccine in 2015 Exploratory laparotomy with gastric wedge biopsy and needle core biopsy of the pancreas in 2014 Endovascular coil occlusion of common hepatic, proximal splenic, and distal celiac arteries in 2014 Allergies: Codeine Sulfate Medications: Advair Diskus 1 (250-50 mcg/dose) Aerosol Powder, Breath Activated Inhalation b.i.d. [facility] Vitamin C 1 - 2 Tablet (of 500 mg) Tablet, chewable Oral daily Hydrocodone-Acetaminophen 1 (10-325 mg) Tablet Oral q 4 hours PRN Pantoprazole Sodium 1 Tablet (of 40 mg) Tablet Delayed Release Oral daily PRN Family History: Ms. Kerr's mother is alive. Ms. Kerr's father is alive. Ms. Kerr has 1 brother who is alive. She has 1 sister who is alive. Family history is unremarkable. Social History: Ms. Kerr is single and she is unemployed. Ms. Kerr no longer smokes but had smoked 1.0 pack/day for 20 years. She has no history of drinking. Ms. Kerr reports the following support systems: lives in own house, supportive family/friends willing to assist with needs, and adequate transportation available for expected visits. Her diet consists of regular meals. She indicates her activity level as: daily activities. Review Of Symptoms: Constitutional Denies fevers, chills, night sweats, excessive fatigue or weight loss. Allergic/Immunologic No reactions. ENMT Denies changes in hearing, sore throat, mouth sores, difficulty or changes in swallowing ability, and/or sinus drainage. Endocrine No diabetes, thyroid disease or hormone replacement. Denies hot flashes or night sweats. Hematologic/Lymphatic Denies easy bruising or bleeding. The patient denies any tender or palpable lymph nodes. Respiratory Some dyspnea on exertion-chronic. Denies chest pain, or hemoptysis. Denies orthopnea. Cardiovascular Denies anginal chest pain, palpitations or orthopnea. Gastrointestinal Has had some diarrhea. Denies nausea, vomiting, GI bleeding, or constipation. Denies change in bowel habits and/or stool color, no heartburn or early satiety. Genitourinary (F) No hematuria, hesitancy, incontinence, vaginal bleeding, discharge or other problems with urination. Musculoskeletal Denies joint pain, swelling or redness. No decreased range of motion. Integumentary Denies chronic rashes, inflammation, ulcerations or skin changes. Neurologic Denies headache, blurred vision, and no areas of focal weakness or numbness. Psychiatric Denies depression, mi or mood swings. Vital Signs: Performed on Mar 18, 2020 11:48 Height - 64.00 in Weight - 125.2 lbs (LOW) BSA - 1.60 sq.m BMI - 21.49 Temperature - 97.6 F (LOW) Pulse - 79 /min Respiration - 18 /min BP - 133/73 mm(hg) O2 Sat - 94 % (LOW) Pain - 3,1 - No physically strenuous activity, but ambulatory and able to carry out light or sedentary work (e.g. office work, light house work). (ECOG) Physical Examination: Constitutional Alert, oriented, no acute distress. Skin pink, warm and dry. Head Normocephalic; atraumatic. Eyes Conjunctivae and sclerae are clear and without icterus. Pupils are reactive and equal. ENMT Sinuses are nontender. No oral exudates, ulcers, masses, thrush or mucositis. Oropharynx clear. Tongue normal. Neck Supple without masses or thyromegaly. No jugular venous distension. Respiratory Lungs are clear to auscultation without rhonchi or wheezing. Cardiovascular Regular rate and rhythm of heart without murmurs,clicks, gallops or rubs. Abdomen Non-tender, non-distended, no masses, ascites or hepatosplenomegaly. Good bowel sounds noted in all quads. No guarding or rebound tenderness. No pulsatile masses. Back/Spine Non-tender to palpation. Extremities No visible deformities, no cyanosis, clubbing or edema. Musculoskeletal No tenderness or swelling, normal range of motion without obvious weakness. Integumentary No rashes or lesions. Neurologic No sensory or motor deficits, normal cerebellar function, normal gait. Psychiatric Alert and oriented times three. Coherent speech. Verbalizes understanding of our discussions today. Laboratory:Test performed on Jan 28, 2020 13:14 Serotonin, Serum 186 ng/mL Sodium 136 mmol/L Potassium 4.1 mmol/L Chloride 102 mmol/L CO2 21 mmol/L Anion Gap 17.1 BUN 13 mg/dL Creatinine 0.8 mg/dL Cr Clearance (Est) 69.4000 mL/min eGFR 73.2 mL/min Glucose 233 mg/dL Calcium 8.9 mg/dL Osmolality - Calculated 286 mOsm/kg Protein, Total 8.2 g/dL Albumin 4.5 g/dL Globulin 3.7 g/dL Bilirubin, Total 0.2 mg/dL ALT (SGPT) 62 U/L AST (SGOT) 61 U/L Alkaline Phosphatase 172 IU/L WBC 10.1 10 3/uL RBC 4.45 10 6/uL HGB 12.6 g/dL HCT 40.7 % MCV 91.5 fL MCH 28.3 pg MCHC 31.0 g/dL RDW 15.5 % Platelet Count 352 10 3/cmm MPV 10.1 fL Neutrophils 7.52 10 3/uL Lymphocytes 2.1 10 3/uL Monocytes 0.4 10 3/uL Eosinophils 0.0 10 3/uL Basophils 0.1 10 3/uL Neutrophil % 74.6 % Lymphocyte % 20.4 % Monocyte % 3.8 % Eosinophil % 0.4 % Basophils % 0.5 % NRBC % 0 % Chromogranin A 5794 ng/mL Impression: 1. The patient has well differentiated pancreatic neuroendocrine tumor, WHO grade 2, stage IV (T4, Nx, M1). She underwent endovascular coil embolization to common hepatic, proximal splenic, and distal celiac arteries on 04/05/2015 followed by exploratory laparotomy with gastric wedge biopsy and needle core biopsy of the pancreas on 05/11/2015. 2. She has significant anxiety/depression/emotional lability. 3. She also has significant underlying COPD. Her other medical illnesses include: 4. Degenerative arthritis. 5. Tobacco dependence (cigarettes), in remission. Overall, her management had been difficult as she had been very inconsistent with her symptomatology and very inconsistent with her follow-up. However, as of her follow-up visit in March 2018 there was significant worsening of her carcinoid type symptoms, a significant increase in her chromogranin A level, and evidence of disease progression by CT scan. In May 2018 she started treatment with Somatuline Depot 120 mg monthly. During subsequent follow-up she had improvement in her neuroendocrine associated symptoms. Her chromogranin A levels, though, have remained significantly elevated. Her repeat CT scans in April 2019 showed just a slight further increase in the pancreatic area mass. Overall, she has been showing gradual decline in her activity tolerance, some component of which may related to her underlying COPD and to degenerative arthritis. Her neuroendocrine symptoms remain adequately controlled. CT of the chest abdomen pelvis with contrast was performed on March 03, 2020. It reports interval increase in the size of the large left hepatic mass measuring 7.8 x 9.7 x 8.8 cm with mass-effect on the left hepatic lobe. There is slightly progressed upper abdominal and aortocaval lymphadenopathy the largest aortocaval measuring 18 mm. There is fluid distended gallbladder. Calcified multi-fibroid uterus. Stable enlarged right hilar lymph node measuring 10 mm and a few noncalcified subcentimeter pulmonary nodules are stable with no evidence of disease progression in the chest. Plan: 1. Proceed with Somatuline Depot 120 mg by intramuscular injection monthly. 2. Labs from January 28, 2020 were reviewed in detail and discussed with Ms. Kerr and a copy was given to her. WBC 10.1, hemoglobin 12.6, platelets 10 52,000 potassium 4.1 random glucose was 233 creatinine 0.8 ALT was 62 previously on October 14, 2027 was 16, AST was 61 on January 28, 2020 and was 21 on October 14, 2019. Her serotonin was 186 on 01/28/2020. Chromogranin A was 5794 on January 28, 2020 compared to 4902 on October 14, 2019. 3. CT of the chest abdomen pelvis with contrast was performed on March 03, 2020. It reports interval increase in the size of the large left hepatic mass measuring 7.8 x 9.7 x 8.8 cm with mass-effect on the left hepatic lobe. There is slightly progressed upper abdominal and aortocaval lymphadenopathy the largest aortocaval measuring 18 mm. There is fluid distended gallbladder. Calcified multi-fibroid uterus. Stable enlarged right hilar lymph node measuring 10 mm and a few noncalcified subcentimeter pulmonary nodules are stable with no evidence of disease progression in the chest. 4. We will seek approval for Afinitor 10 mg daily to add to her Sandostatin for treatment of metastatic pancreatic neuroendocrine tumor which is progressing per her last CT. 5. We will establish her follow-up once we know the approval status and delivery of the Afinitor. 6. We will plan to see her back in 1 month for repeat somatuline with CBC, CMP, serotonin and chromogranin A. 7. Ms Aguilera was instructed to contact us in interim should arise Signed By: Bud Mendoza MD <<Signature on File>>
== END 2020-03-18 11:23 | disposition home or self-care (01) ==
LOC: ONCMED 11:27
PROVIDERS: PCP Physician Assistant; Visit Provider Nurse Practitioner
DX: C7A.8 Other malignant neuroendocrine tumors (principal); F41.8 Other specified anxiety disorders; M19.90 Unspecified osteoarthritis, unspecified site; F17.211 Nicotine dependence, cigarettes, in remission; D25.9 Leiomyoma of uterus, unspecified
CPT/HCPCS: 96372; 99214; J1930

== ENCOUNTER 2020-05-11 13:40 | Outpatient (CLI) | payer MEDICARE, MEDICAID, SELFPAY ==
[2020-05-11] MEDS: LANREOTIDE 120 MG/0.5 ML SUBCUT (15:22)
--- NOTE | 2020-05-18 09:34 | ONC FU_ITS ---
Esteb[facility] Sifuentes Patient Note Patient: Genoveva Kerr Unit #: [id number]: 1960 Dictated By: Bud MendozaDate of Visit: May 11, 2020 Onc MED Follow-Up/Prog Note Chief Complaint: Pancreatic neuroendocrine tumor. History of Present Illness: Ms Kerr is a 59 year-old woman with metastatic pancreatic neuroendocrine tumor, WHO grade 2, stage IV (T4, Nx, M1). She had been having intermittent diarrhea for 2 years. She had been feeling tired all the time, and she also complained of persistent cough. She had seen Dr. Varner, and in November 2014 she had evaluation with CT abdomen/pelvis which showed a 2.3 x 3.5 x 3.4 cm homogeneous enhancing mass which appeared inseparable from the superior surface of the body of the pancreas. It was noted to abut the anterior margin of the celiac artery and anterior/superior margins of the common hepatic artery and splenic artery. The right hepatic lobe was noted to be enlarged, but there were no focal defects in the liver. Left adrenal gland showed a probable 9 mm adenoma. There was a 13 mm subpleural nodule in the anterior right lower lobe of uncertain significance. She was referred to Dr. Hare in [place]. Her subsequent evaluation included EUS in December, which apparently did confirm pancreatic neuroendocrine tumor. She had further evaluation with MRI, which showed 2 lesions in the liver, one of which showed typical findings of hemangioma. The other was felt to be possibly hemangioma versus possible metastatic lesion. There was no other evidence to suggest metastatic involvement. After discussion with patient, plan was made to proceed with subtotal left pancreatectomy with resection of the celiac arcade. In preparation for the procedure, she underwent endovascular coil occlusion of the common hepatic, proximal splenic, and distal celiac arteries on 04/05/2015. On 05/11/2015 she underwent exploratory laparotomy. At that time, she was noted to have a white nodule on the anterior surface of the stomach. It was located at the pylorus, and it measured 2 cm. It was removed by gastric wedge biopsy. Frozen section was consistent with neuroendocrine tumor. A needle core biopsy of the pancreas was obtained, but no further resection was attempted. Final pathology showed well-differentiated neuroendocrine tumor on both the gastric biopsy and the needle core biopsy of the pancreas. The Ki-67 on a pancreatic biopsy showed a labeling index of 3%, qualifying for WHO grade 2. Dr Dempsey had seen her initially on 06/04/2015. At that time she complained of significant fatigue and she still had intermittent diarrhea. Her weight at that point was still down 25 lbs. She also reported having persistent cough, and she complained of having hot flashes and occasional sweating. Her subsequent laboratory evaluation did show a slightly elevated chromogranin A level at 11 nmol/L, normal range 0-5. VIP level was normal less than 13 pg/mL. 24-hour urine 5-HIAA also was normal at 4 mg, normal range up to 15 mg. She was admitted to the hospital on 08/14/2015 after presenting to the emergency room with intractable nausea and vomiting. She reported having postprandial pain in the epigastric area and she also reported having diarrhea. CT abdomen/pelvis reported small bowel mucosal thickening consistent with nonspecific enteritis. The duodenum was noted to be mildly dilated. There were no definite obstructive changes. A 1.3 cm lesion was noted at the right lung base, new from the previous studies. The pancreas was noted be obscured by artifact. However, I did review that study with one of our radiologists, and the pancreatic mass was not able be completely visualized because of interval placement of surgical clips, but it did appear to be similar to the previous study. There were a few small nodes in that area which appeared to be new. In January 2016 she was again admitted to the hospital with nausea/vomiting, abdominal pain, and diarrhea. CT abdomen/pelvis at that time showed fluid within the small bowel and colon without evidence of mesenteric lymphadenopathy or bowel wall thickening, felt to possibly reflect viral gastroenteritis. There was stable lymphadenopathy in the upper abdomen in the left adrenal nodule also appeared stable. There was stable reticulonodular interstitial thickening in the visualized portions of both lungs. There was no evidence of new metastatic disease. The illness resolved with conservative management. A repeat CT of the abdomen/pelvis on 07/17/2016 showed stable findings, and she continued on observation/expectant management. Her medical illnesses are otherwise limited to COPD and degenerative arthritis. She does have a history of smoking 1 pack of cigarettes daily for 20 years. She quit smoking in April 2015. INTERIM HISTORY: She was seen for a follow-up visit on 03/14/2018. At that point she had developed more consistent carcinoid type symptoms including hot flashes/sweating and diarrhea. Her chromogranin a level had increased significantly to 80 nmol/L compared to 35 nmol/L in December 2016. Her whole blood serotonin level was also elevated at 484/200 ng/mL. Her CT of the chest, abdomen, and pelvis showed new bilateral pulmonary nodules felt to be possibly postinflammatory or atypical infectious process versus metastatic disease. There were unchanged right lower lung zone tree-in-bud nodular opacities, and there was chronic emphysema. The abdomen/pelvis showed interval enlargement of the hepatic mass with development of new upper abdominal retroperitoneal and matias hepatis adenopathy. Given those findings, she began on treatment somatuline Depot 120 mg monthly. She received her initial injection on 05/02/2018 and she returned for a 2nd injection 05/30/2018. The 3rd was delayed until 07/15/2018. She had significant improvement in the hot flashes/sweating and in the diarrhea after starting the somatuline. Her repeat CT scans of the chest, abdomen, and pelvis on 04/04/2019 showed resolution of previously described pulmonary nodules. The abdomen/pelvis showed slight increase in the abdominal mass measuring 6.4 x 8.1 x 9.55 cm. It was reported to be in the left lobe of the liver, but it actually reflected the pancreatic neoplasm impinging on the liver. There were no other apparent areas of involvement. She continued treatment with somatuline on a monthly schedule. Ms Kerr was seen in January 2020 and was found to have elevation of her LFTs and chromogranin A level. At that point her last CT of the chest abdomen pelvis was April 04, 2019. Since that visit she has had follow-up CT. CT of the chest abdomen pelvis with contrast was performed on March 03, 2020. It reports interval increase in the size of the large left hepatic mass measuring 7.8 x 9.7 x 8.8 cm with mass-effect on the left hepatic lobe. There is slightly progressed upper abdominal and aortocaval lymphadenopathy the largest aortocaval measuring 18 mm. There is fluid distended gallbladder. Calcified multi-fibroid uterus. Stable enlarged right hilar lymph node measuring 10 mm and a few noncalcified subcentimeter pulmonary nodules are stable with no evidence of disease progression in the chest. Ms Kerr is here today for followup. Her last visit and somatuline was on 03/18/2020. She denies any new concerns today. She denies any fever or chills. She denies any known Covid exposure or pending test. She is accompanied by her family member today. She is aware of her January CT results. We are attempting to add Afinitor to her regimen. This is being investigated by our navigator. We will let her know soon as we figure out if this is covered by her insurance or be considered off label. She denies any new pain. She has had no nausea or vomiting. She denies diarrhea or constipation. She is very jovial today. She continues to be a little weak but states she thinks that is getting better. She did not require assistance with her gait today. Her ECOG is 1. Past Medical History: Chronic obstructive pulmonary disease Degenerative arthritis Past Surgical History: Flu vaccine in 2016 Exploratory laparotomy with gastric wedge biopsy and needle core biopsy of the pancreas in 2014 Endovascular coil occlusion of common hepatic, proximal splenic, and distal celiac arteries in 2014 Allergies: Codeine Sulfate Medications: Advair Diskus 1 (250-50 mcg/dose) Aerosol Powder, Breath Activated Inhalation b.i.d. [facility] Vitamin C 1 - 2 Tablet (of 500 mg) Tablet, chewable Oral daily Hydrocodone-Acetaminophen 1 (10-325 mg) Tablet Oral q 4 hours PRN Pantoprazole Sodium 1 Tablet (of 40 mg) Tablet Delayed Release Oral daily PRN Family History: Ms. Kerr's mother is alive. Ms. Kerr's father is alive. Ms. Kerr has 1 brother who is alive. She has 1 sister who is alive. Family history is unremarkable. Social History: Ms. Kerr is single and she is unemployed. Ms. Kerr no longer smokes but had smoked 1.0 pack/day for 21 years. She has no history of drinking. Ms. Kerr reports the following support systems: lives in own house, supportive family/friends willing to assist with needs, and adequate transportation available for expected visits. Her diet consists of regular meals. She indicates her activity level as: daily activities. Review Of Symptoms: Constitutional Denies fevers, chills, night sweats, excessive fatigue or weight loss. Allergic/Immunologic No reactions. Eyes Some problems seeing up close. ENMT Denies changes in hearing, sore throat, mouth sores, difficulty or changes in swallowing ability, and/or sinus drainage. Endocrine No diabetes, thyroid disease or hormone replacement. Denies hot flashes or night sweats. Hematologic/Lymphatic Denies easy bruising or bleeding. The patient denies any tender or palpable lymph nodes. Respiratory Some dyspnea on exertion-chronic. Denies chest pain, or hemoptysis. Denies orthopnea. Cardiovascular Denies anginal chest pain, palpitations or orthopnea. Gastrointestinal Has had some diarrhea but controlled. Denies nausea, vomiting, GI bleeding, or constipation. Denies change in bowel habits and/or stool color, no heartburn or early satiety. Genitourinary (F) No hematuria, hesitancy, incontinence, vaginal bleeding, discharge or other problems with urination. Musculoskeletal Denies joint pain, swelling or redness. No decreased range of motion. Integumentary Denies chronic rashes, inflammation, ulcerations or skin changes. Neurologic Denies headache, blurred vision, and no areas of focal weakness or numbness. Psychiatric Denies depression, mi or mood swings. Vital Signs: Performed on May 11, 2020 14:28 Height - 64.00 in Weight - 130.6 lbs (HIGH) BSA - 1.63 sq.m BMI - 22.42 Temperature - 98.1 F (LOW) Pulse - 71 /min Respiration - 16 /min BP - 125/69 mm(hg) O2 Sat - 94 % (LOW) Pain - 4,1 - No physically strenuous activity, but ambulatory and able to carry out light or sedentary work (e.g. office work, light house work). (ECOG) Physical Examination: Constitutional Alert, oriented, no acute distress. Skin pink, warm and dry. Head Normocephalic; atraumatic. Eyes Conjunctivae and sclerae are clear and without icterus. Pupils are reactive and equal. ENMT Sinuses are nontender. No oral exudates, ulcers, masses, thrush or mucositis. Oropharynx clear. Tongue normal. Neck Supple without masses or thyromegaly. No jugular venous distension. Respiratory Lungs are clear to auscultation without rhonchi or wheezing. Cardiovascular Regular rate and rhythm of heart without murmurs,clicks, gallops or rubs. Abdomen Non-tender, non-distended, no masses, ascites or hepatosplenomegaly. Good bowel sounds noted in all quads. No guarding or rebound tenderness. No pulsatile masses. Back/Spine Non-tender to palpation. Extremities No visible deformities, no cyanosis, clubbing or edema. Musculoskeletal No tenderness or swelling, normal range of motion without obvious weakness. Integumentary No rashes or lesions. Neurologic No sensory or motor deficits, normal cerebellar function, normal gait. Psychiatric Alert and oriented times three. Coherent speech. Verbalizes understanding of our discussions today. Laboratory:Test performed on Jan 28, 2020 13:14 Serotonin, Serum 186 ng/mL Sodium 136 mmol/L Potassium 4.1 mmol/L Chloride 102 mmol/L CO2 21 mmol/L Anion Gap 17.1 BUN 13 mg/dL Creatinine 0.8 mg/dL Cr Clearance (Est) 69.4000 mL/min eGFR 73.2 mL/min Glucose 233 mg/dL Calcium 8.9 mg/dL Osmolality - Calculated 286 mOsm/kg Protein, Total 8.2 g/dL Albumin 4.5 g/dL Globulin 3.7 g/dL Bilirubin, Total 0.2 mg/dL ALT (SGPT) 62 U/L AST (SGOT) 61 U/L Alkaline Phosphatase 172 IU/L WBC 10.1 10 3/uL RBC 4.45 10 6/uL HGB 12.6 g/dL HCT 40.7 % MCV 91.5 fL MCH 28.3 pg MCHC 31.0 g/dL RDW 15.5 % Platelet Count 352 10 3/cmm MPV 10.1 fL Neutrophils 7.52 10 3/uL Lymphocytes 2.1 10 3/uL Monocytes 0.4 10 3/uL Eosinophils 0.0 10 3/uL Basophils 0.1 10 3/uL Neutrophil % 74.6 % Lymphocyte % 20.4 % Monocyte % 3.8 % Eosinophil % 0.4 % Basophils % 0.5 % NRBC % 0 % Chromogranin A 5794 ng/mL Impression: 1. The patient has well differentiated pancreatic neuroendocrine tumor, WHO grade 2, stage IV (T4, Nx, M1). She underwent endovascular coil embolization to common hepatic, proximal splenic, and distal celiac arteries on 04/05/2015 followed by exploratory laparotomy with gastric wedge biopsy and needle core biopsy of the pancreas on 05/11/2015. 2. She has significant anxiety/depression/emotional lability. 3. She also has significant underlying COPD. Her other medical illnesses include: 4. Degenerative arthritis. 5. Tobacco dependence (cigarettes), in remission. Overall, her management had been difficult as she had been very inconsistent with her symptomatology and very inconsistent with her follow-up. However, as of her follow-up visit in March 2018 there was significant worsening of her carcinoid type symptoms, a significant increase in her chromogranin A level, and evidence of disease progression by CT scan. In May 2018 she started treatment with Somatuline Depot 120 mg monthly. During subsequent follow-up she had improvement in her neuroendocrine associated symptoms. Her chromogranin A levels, though, have remained significantly elevated. Her repeat CT scans in April 2019 showed just a slight further increase in the pancreatic area mass. Overall, she has been showing gradual decline in her activity tolerance, some component of which may related to her underlying COPD and to degenerative arthritis. Her neuroendocrine symptoms remain adequately controlled. CT of the chest abdomen pelvis with contrast was performed on March 03, 2020. It reports interval increase in the size of the large left hepatic mass measuring 7.8 x 9.7 x 8.8 cm with mass-effect on the left hepatic lobe. There is slightly progressed upper abdominal and aortocaval lymphadenopathy the largest aortocaval measuring 18 mm. There is fluid distended gallbladder. Calcified multi-fibroid uterus. Stable enlarged right hilar lymph node measuring 10 mm and a few noncalcified subcentimeter pulmonary nodules are stable with no evidence of disease progression in the chest. Plan: 1. Proceed with Somatuline Depot 120 mg by intramuscular injection monthly. 2. Labs from January 28, 2020 were reviewed in detail and discussed with Ms. Kerr and a copy was given to her again. WBC 10.1, hemoglobin 12.6, platelets 10 52,000 potassium 4.1 random glucose was 233 creatinine 0.8 ALT was 62 previously on October 14, 2027 was 16, AST was 61 on January 28, 2020 and was 21 on October 14, 2019. Her serotonin was 186 on 01/28/2020. Chromogranin A was 5794 on January 28, 2020 compared to 4902 on October 14, 2019. She did not have labs prior to her visit today. She has not had any of her neuroendocrine labs drawn since December. We will set this up to be done in a week with CBC CMP, chromogranin A, serotonin. 3. CT of the chest abdomen pelvis with contrast was performed on March 03, 2020. It reports interval increase in the size of the large left hepatic mass measuring 7.8 x 9.7 x 8.8 cm with mass-effect on the left hepatic lobe. There is slightly progressed upper abdominal and aortocaval lymphadenopathy the largest aortocaval measuring 18 mm. There is fluid distended gallbladder. Calcified multi-fibroid uterus. Stable enlarged right hilar lymph node measuring 10 mm and a few noncalcified subcentimeter pulmonary nodules are stable with no evidence of disease progression in the chest. 4. We will seek approval for Afinitor 10 mg daily to add to her Sandostatin for treatment of metastatic pancreatic neuroendocrine tumor which is progressing per her last CT. 5. We will plan to see her back in 1 month for repeat somatuline with CBC, CMP, serotonin and chromogranin A being drawn next week. Depending on those labs, and when she starts the Afinitor, we may need to set her up for weekly labs and then repeat her neuroendocrine labs with her next visit. 7. Ms Aguilera was instructed to contact us in interim should arise Signed By: Bud Mendoza-, AOCNP Timo Dempsey MD <<Signature on File>>
== END 2020-05-11 13:41 | disposition home or self-care (01) ==
LOC: ONCMED 13:43
PROVIDERS: PCP Physician Assistant; Visit Provider Nurse Practitioner
DX: C7A.8 Other malignant neuroendocrine tumors (principal); R91.8 Other nonspecific abnormal finding of lung field; R16.0 Hepatomegaly, not elsewhere classified; F41.8 Other specified anxiety disorders; D25.9 Leiomyoma of uterus, unspecified; J44.9 Chronic obstructive pulmonary disease, unspecified; F17.211 Nicotine dependence, cigarettes, in remission; M19.90 Unspecified osteoarthritis, unspecified site; Z79.899 Other long term (current) drug therapy
CPT/HCPCS: 96372; 99214; J1930

== ENCOUNTER 2020-06-28 17:14 | Outpatient (CLI) | payer MEDICARE, MEDICAID, SELFPAY ==
[2020-06-28 16:55] LABS: Basophils # 0.1 10^3/uL (0.0-0.1); Basophils % 0.7 %; Eosinophils % 0.1 %; Hematocrit 44.7 % (37.0-47.0); Hemoglobin 14.1 g/dL (11.5-15.3); Lymphocytes # 2.9 10^3/uL (0.8-4.8); Lymphocytes % 28.6 %; Mean Corpuscular HGB Conc 31.5 g/dL (30.0-36.0); Mean Corpuscular Hemoglobin 28.4 pg (28.0-34.0); Mean Corpuscular Volume 90.1 fL (81-99); Mean Platelet Volume 10.4 fL (7.4-10.4); Monocytes # 0.4 10^3/uL (0.2-0.9); Monocytes % 3.9 %; Neutrophils # 6.84 10^3/uL (1.8-7.7); Neutrophils % 66.5 %; Nucleated Red Blood Cells % 0 %; Platelet Count 468 10^3/cmm (130-400); Red Blood Count 4.96 10^6/uL (4.1-5.3); White Blood Count 10.3 10^3/uL (4.0-10.0)
[2020-06-28 17:25] LABS: Alanine Aminotransferase 41 U/L (0-33); Albumin Level 4.6 g/dL (3.5-5.2); Alkaline Phosphatase 201 IU/L (35-105); Anion Gap 17.2 (5-19); Aspartate Amino Transferase 34 U/L (0-32); Blood Urea Nitrogen 13 mg/dL (8-23); Calcium 9.8 mg/dL (8.5-10.5); Carbon Dioxide 26 mmol/L (22-29); Chloride 103 mmol/L (98-107); Globulin 3.5 g/dL (1.3-4.6); Glomerular Filtration Rate 63.9 mL/min (90-130); Glucose 123 mg/dL (65-115); Osmolality Calculated 295 mOsm/kg (285-295); Potassium 4.2 mmol/L (3.5-5.1); Sodium 142 mmol/L (136-145); Total Bilirubin 0.2 mg/dL (0.15-1.2); Total Protein 8.1 g/dL (6.6-8.7)
[2020-06-28 22:57] LABS: Estmated Average Glucose 126
[2020-07-03 19:38] LABS: Chromogranin A 10335 ng/mL (25-140)
[2020-07-05 18:08] LABS: Serotonin Whole Blood 413 ng/mL (56-244)
== END 2020-06-28 17:15 | disposition home or self-care (01) ==
LOC: ONCMED 17:17
PROVIDERS: PCP Physician Assistant; Visit Provider Nurse Practitioner
DX: C25.4 Malignant neoplasm of endocrine pancreas (principal); C7A.8 Other malignant neuroendocrine tumors; R73.09 Other abnormal glucose; F17.211 Nicotine dependence, cigarettes, in remission
CPT/HCPCS: 80053; 83036; 84260; 85025; 86316

== ENCOUNTER 2020-07-01 06:21 | Outpatient (CLI) | payer MEDICARE, MEDICAID, SELFPAY ==
[2020-07-01] MEDS: LANREOTIDE 120 MG/0.5 ML SUBCUT (15:28)
--- NOTE | 2020-07-07 00:24 | ONC FU_ITS ---
Esteban Sifuentes Patient Note Patient: Genoveva Kerr Unit #: [id number]: 1960 Dictated By: Bud MendozaDate of Visit: Jul 01, 2020 Onc MED Follow-Up/Prog Note Chief Complaint: Pancreatic neuroendocrine tumor. History of Present Illness: Ms Kerr is a 59 year-old woman with metastatic pancreatic neuroendocrine tumor, WHO grade 2, stage IV (T4, Nx, M1). She had been having intermittent diarrhea for 2 years. She had been feeling tired all the time, and she also complained of persistent cough. She had seen Dr. Varner, and in November 2014 she had evaluation with CT abdomen/pelvis which showed a 2.3 x 3.5 x 3.4 cm homogeneous enhancing mass which appeared inseparable from the superior surface of the body of the pancreas. It was noted to abut the anterior margin of the celiac artery and anterior/superior margins of the common hepatic artery and splenic artery. The right hepatic lobe was noted to be enlarged, but there were no focal defects in the liver. Left adrenal gland showed a probable 9 mm adenoma. There was a 13 mm subpleural nodule in the anterior right lower lobe of uncertain significance. She was referred to Dr. Hare in [place]. Her subsequent evaluation included EUS in December, which apparently did confirm pancreatic neuroendocrine tumor. She had further evaluation with MRI, which showed 2 lesions in the liver, one of which showed typical findings of hemangioma. The other was felt to be possibly hemangioma versus possible metastatic lesion. There was no other evidence to suggest metastatic involvement. After discussion with patient, plan was made to proceed with subtotal left pancreatectomy with resection of the celiac arcade. In preparation for the procedure, she underwent endovascular coil occlusion of the common hepatic, proximal splenic, and distal celiac arteries on 04/05/2015. On 05/11/2015 she underwent exploratory laparotomy. At that time, she was noted to have a white nodule on the anterior surface of the stomach. It was located at the pylorus, and it measured 2 cm. It was removed by gastric wedge biopsy. Frozen section was consistent with neuroendocrine tumor. A needle core biopsy of the pancreas was obtained, but no further resection was attempted. Final pathology showed well-differentiated neuroendocrine tumor on both the gastric biopsy and the needle core biopsy of the pancreas. The Ki-67 on a pancreatic biopsy showed a labeling index of 3%, qualifying for WHO grade 2. Dr Dempsey had seen her initially on 06/04/2015. At that time she complained of significant fatigue and she still had intermittent diarrhea. Her weight at that point was still down 25 lbs. She also reported having persistent cough, and she complained of having hot flashes and occasional sweating. Her subsequent laboratory evaluation did show a slightly elevated chromogranin A level at 11 nmol/L, normal range 0-5. VIP level was normal less than 13 pg/mL. 24-hour urine 5-HIAA also was normal at 4 mg, normal range up to 15 mg. She was admitted to the hospital on 08/14/2015 after presenting to the emergency room with intractable nausea and vomiting. She reported having postprandial pain in the epigastric area and she also reported having diarrhea. CT abdomen/pelvis reported small bowel mucosal thickening consistent with nonspecific enteritis. The duodenum was noted to be mildly dilated. There were no definite obstructive changes. A 1.3 cm lesion was noted at the right lung base, new from the previous studies. The pancreas was noted be obscured by artifact. However, Dr Dempsey did review that study with one of our radiologists, and the pancreatic mass was not able be completely visualized because of interval placement of surgical clips, but it did appear to be similar to the previous study. There were a few small nodes in that area which appeared to be new. In January 2016 she was again admitted to the hospital with nausea/vomiting, abdominal pain, and diarrhea. CT abdomen/pelvis at that time showed fluid within the small bowel and colon without evidence of mesenteric lymphadenopathy or bowel wall thickening, felt to possibly reflect viral gastroenteritis. There was stable lymphadenopathy in the upper abdomen in the left adrenal nodule also appeared stable. There was stable reticulonodular interstitial thickening in the visualized portions of both lungs. There was no evidence of new metastatic disease. The illness resolved with conservative management. A repeat CT of the abdomen/pelvis on 07/17/2016 showed stable findings, and she continued on observation/expectant management. Her medical illnesses are otherwise limited to COPD and degenerative arthritis. She does have a history of smoking 1 pack of cigarettes daily for 20 years. She quit smoking in April 2015. INTERIM HISTORY: She was seen for a follow-up visit on 03/14/2018. At that point she had developed more consistent carcinoid type symptoms including hot flashes/sweating and diarrhea. Her chromogranin a level had increased significantly to 80 nmol/L compared to 35 nmol/L in December 2016. Her whole blood serotonin level was also elevated at 484/200 ng/mL. Her CT of the chest, abdomen, and pelvis showed new bilateral pulmonary nodules felt to be possibly postinflammatory or atypical infectious process versus metastatic disease. There were unchanged right lower lung zone tree-in-bud nodular opacities, and there was chronic emphysema. The abdomen/pelvis showed interval enlargement of the hepatic mass with development of new upper abdominal retroperitoneal and matias hepatis adenopathy. Given those findings, she began on treatment somatuline Depot 120 mg monthly. She received her initial injection on 05/02/2018 and she returned for a 2nd injection 05/30/2018. The 3rd was delayed until 07/15/2018. She had significant improvement in the hot flashes/sweating and in the diarrhea after starting the somatuline. Her repeat CT scans of the chest, abdomen, and pelvis on 04/04/2019 showed resolution of previously described pulmonary nodules. The abdomen/pelvis showed slight increase in the abdominal mass measuring 6.4 x 8.1 x 9.55 cm. It was reported to be in the left lobe of the liver, but it actually reflected the pancreatic neoplasm impinging on the liver. There were no other apparent areas of involvement. She continued treatment with somatuline on a monthly schedule. Ms Kerr was seen in January 2020 and was found to have elevation of her LFTs and chromogranin A level. At that point her last CT of the chest abdomen pelvis was April 04, 2019. Since that visit she has had follow-up CT. CT of the chest abdomen pelvis with contrast was performed on March 03, 2020. It reports interval increase in the size of the large left hepatic mass measuring 7.8 x 9.7 x 8.8 cm with mass-effect on the left hepatic lobe. There is slightly progressed upper abdominal and aortocaval lymphadenopathy the largest aortocaval measuring 18 mm. There is fluid distended gallbladder. Calcified multi-fibroid uterus. Stable enlarged right hilar lymph node measuring 10 mm and a few noncalcified subcentimeter pulmonary nodules are stable with no evidence of disease progression in the chest. Ms Kerr is here today for followup. Her last visit and somatuline was on 05/11/2020. She has not started the Afinitor as discussed at her last visit because she states her some of the forms to pick it up and was told it was 17,000 hours per prescription. She did not call office for any further instructions. She has missed multiple appointments due to feeling too bad to come in . She states has been having some dizzy spells off and on but she states there is no pattern. She states they have become more frequent. Her caregiver accompanying her today reports that she considers that it may be her blood sugar being low as Ms. Kerr's diet has waxed and waned. She states especially with the holidays she has been eating a lot of sweets and seems to space out at times . She denies any seizure-like activity. She denies any shortness of breath or orthopnea. She has persistent diarrhea which has worsened over the last couple weeks due to delay of her somatuline injetion. She states she has had this abdominal fullness/pain but it has not been severe but compares it to normal pain that I have-just more often now . She has had some nausea off and on but states she has not been taking any nausea medication. We will refill ondansetron 4 mg with instructions to take 1 or 2 up to 4 times a day as needed. She will let us know if that is not working. Her ECOG is 2. Past Medical History: Chronic obstructive pulmonary disease Degenerative arthritis Past Surgical History: Flu vaccine in 2016 Exploratory laparotomy with gastric wedge biopsy and needle core biopsy of the pancreas in 2015 Endovascular coil occlusion of common hepatic, proximal splenic, and distal celiac arteries in 2014 Allergies: Codeine Sulfate Medications: Advair Diskus 1 (250-50 mcg/dose) Aerosol Powder, Breath Activated Inhalation b.i.d. [facility] Vitamin C 1 - 2 Tablet (of 500 mg) Tablet, chewable Oral daily Hydrocodone-Acetaminophen 1 (10-325 mg) Tablet Oral q 4 hours PRN Pantoprazole Sodium 1 Tablet (of 40 mg) Tablet Delayed Release Oral daily PRN Family History: Ms. Kerr's mother is alive. Ms. Kerr's father is alive. Ms. Kerr has 1 brother who is alive. She has 1 sister who is alive. Family history is unremarkable. Social History: Ms. Kerr is single and she is unemployed. Ms. Kerr no longer smokes but had smoked 1.0 pack/day for 21 years. She has no history of drinking. Ms. Kerr reports the following support systems: lives in own house, supportive family/friends willing to assist with needs, and adequate transportation available for expected visits. Her diet consists of regular meals. She indicates her activity level as: daily activities. Review Of Symptoms: Constitutional Denies fevers, chills, night sweats, excessive fatigue or weight loss. Allergic/Immunologic No reactions. ENMT Denies changes in hearing, sore throat, mouth sores, difficulty or changes in swallowing ability, and/or sinus drainage. Endocrine No diabetes, thyroid disease or hormone replacement. Denies hot flashes or night sweats. Hematologic/Lymphatic Denies easy bruising or bleeding. The patient denies any tender or palpable lymph nodes. Respiratory Some dyspnea on exertion-chronic. Denies chest pain, or hemoptysis. Denies orthopnea. Cardiovascular Denies anginal chest pain, palpitations or orthopnea. Gastrointestinal Has had some increased diarrhea-slows down with Imodium but returns when med wears off. Genitourinary (F) No hematuria, hesitancy, incontinence, vaginal bleeding, discharge or other problems with urination. Musculoskeletal Denies joint pain, swelling or redness. No decreased range of motion. Integumentary Denies chronic rashes, inflammation, ulcerations or skin changes. Neurologic Denies headache, blurred vision, and no areas of focal weakness or numbness. Dizziness as above. Psychiatric Denies new depression, mi or mood swings. Vital Signs: Performed on Jul 01, 2020 14:25 Height - 64.00 in Weight - 125.8 lbs (LOW) BSA - 1.61 sq.m BMI - 21.59 Temperature - 97.4 F (LOW) Pulse - 79 /min Respiration - 18 /min BP - 126/80 mm(hg) O2 Sat - 96 % Pain - 4 Fatigue - 8,1 - No physically strenuous activity, but ambulatory and able to carry out light or sedentary work (e.g. office work, light house work). (ECOG) Physical Examination: Constitutional Alert, oriented, no acute distress. Skin pink, warm and dry. Head Normocephalic; atraumatic. Eyes Conjunctivae and sclerae are clear and without icterus. Pupils are reactive and equal. Neck Supple without masses or thyromegaly. No jugular venous distension. Respiratory Lungs are clear to auscultation without rhonchi or wheezing. Cardiovascular Regular rate and rhythm of heart without murmurs,clicks, gallops or rubs. Abdomen Non-tender, non-distended, no masses, ascites or hepatosplenomegaly. Good bowel sounds noted in all quads. No guarding or rebound tenderness. No pulsatile masses. Back/Spine Non-tender to palpation. Extremities No visible deformities, no cyanosis, clubbing or edema. Musculoskeletal No tenderness or swelling, normal range of motion without obvious weakness. Integumentary No rashes or lesions. Neurologic No sensory or motor deficits, normal cerebellar function, normal gait. Psychiatric Alert and oriented times three. Coherent speech. Verbalizes understanding of our discussions today. Laboratory:Test performed on Jun 28, 2020 15:55 WBC 10.3 10 3/uL RBC 4.96 10 6/uL HGB 14.1 g/dL HCT 44.7 % MCV 90.1 fL MCH 28.4 pg MCHC 31.5 g/dL RDW 15.0 % Platelet Count 468 10 3/cmm MPV 10.4 fL Neutrophils 6.84 10 3/uL Lymphocytes 2.9 10 3/uL Monocytes 0.4 10 3/uL Eosinophils 0.0 10 3/uL Basophils 0.1 10 3/uL Neutrophil % 66.5 % Lymphocyte % 28.6 % Monocyte % 3.9 % Eosinophil % 0.1 % Basophils % 0.7 % NRBC % 0 % Impression: 1. The patient has well differentiated pancreatic neuroendocrine tumor, WHO grade 2, stage IV (T4, Nx, M1). She underwent endovascular coil embolization to common hepatic, proximal splenic, and distal celiac arteries on 04/05/2015 followed by exploratory laparotomy with gastric wedge biopsy and needle core biopsy of the pancreas on 05/11/2015. 2. She has significant anxiety/depression/emotional lability. 3. She also has significant underlying COPD. Her other medical illnesses include: 4. Degenerative arthritis. 5. Tobacco dependence (cigarettes), in remission. Overall, her management had been difficult as she had been very inconsistent with her symptomatology and very inconsistent with her follow-up. However, as of her follow-up visit in March 2018 there was significant worsening of her carcinoid type symptoms, a significant increase in her chromogranin A level, and evidence of disease progression by CT scan. In May 2018 she started treatment with Somatuline Depot 120 mg monthly. During subsequent follow-up she had improvement in her neuroendocrine associated symptoms. Her chromogranin A levels, though, have remained significantly elevated. Her repeat CT scans in April 2019 showed just a slight further increase in the pancreatic area mass. Overall, she has been showing gradual decline in her activity tolerance, some component of which may related to her underlying COPD and to degenerative arthritis. Her neuroendocrine symptoms remain adequately controlled. CT of the chest abdomen pelvis with contrast was performed on March 03, 2020. It reports interval increase in the size of the large left hepatic mass measuring 7.8 x 9.7 x 8.8 cm with mass-effect on the left hepatic lobe. There is slightly progressed upper abdominal and aortocaval lymphadenopathy the largest aortocaval measuring 18 mm. There is fluid distended gallbladder. Calcified multi-fibroid uterus. Stable enlarged right hilar lymph node measuring 10 mm and a few noncalcified subcentimeter pulmonary nodules are stable with no evidence of disease progression in the chest. She was offered treatment with Affinitor at her visit in May 2020, but did not pick it up as she was told the cost would be $17,000. She has had delay of her somatuline injections as she has missed several appointments in our clinic. Plan: 1. Proceed with Somatuline Depot 120 mg by intramuscular injection monthly. 2. Labs from 06/28/2020 were reviewed in detail and discussed with Ms. Kerr and a copy was given to her. WBC 10.3, hemoglobin 14.1, platelets 4 and 68,000 ANC is 6840. Potassium 4.2 random glucose 123 creatinine 0.9 calcium 9.8 ALT is 41 which is improved from December 2019 at which time was 62. Her alk phos is 201. Hemoglobin A1c is reported at 6.0. Her chromogranin A and serotonin levels were pending at time of visit but were later reported as serotonin 413 compared to 186 in December 2019 and chromogranin A was 10,335 compared to 5794 on January 28, 2020. 3. CT of the chest abdomen pelvis with contrast was performed on March 03, 2020. It reports interval increase in the size of the large left hepatic mass measuring 7.8 x 9.7 x 8.8 cm with mass-effect on the left hepatic lobe. There is slightly progressed upper abdominal and aortocaval lymphadenopathy the largest aortocaval measuring 18 mm. There is fluid distended gallbladder. Calcified multi-fibroid uterus. Stable enlarged right hilar lymph node measuring 10 mm and a few noncalcified subcentimeter pulmonary nodules are stable with no evidence of disease progression in the chest. 4. Her insurance has approved Afinitor 10 mg daily to add to her Sandostatin for treatment of metastatic pancreatic neuroendocrine tumor which is progressing per her last CT and now elevating Chromogranin a and serotonin levels. She request to slowly introduce the Afinitor. She states that she probably will not take it every day but will try to take it every other or every third day and increase it to daily by the time she sees us back in 1 month. We will go ahead and repeat CT imaging to compare to the March 2020 imaging for new baseline as she is starting the Afinitor and has had significant elevation of her chromogranin A and serotonin levels since December 2019. 5. We will plan to see her back in 1 month for repeat somatuline with CBC, CMP, serotonin and chromogranin A. 6. We will see if her insurance will cover glucometer and blood glucose monitoring suppies for glucose monitoring as she does have a hemoglobin A1c of 6.0 with estimated average glucose of 126. 7. Refill hydrocodone per Dr. Dempsey's written prescription on his return on July 05, 2020 8. Ms Aguilera was instructed to contact us in interim should arise Signed By: Bud Mendoza-, [facility] Timo Dempsey MD <<Signature on File>>
== END 2020-07-01 06:22 | disposition home or self-care (01) ==
LOC: ONCMED 06:29
PROVIDERS: PCP Physician Assistant; Visit Provider Nurse Practitioner
DX: C7A.8 Other malignant neuroendocrine tumors (principal); C7B.8 Other secondary neuroendocrine tumors; F41.8 Other specified anxiety disorders; R45.86 Emotional lability; J44.9 Chronic obstructive pulmonary disease, unspecified; M19.90 Unspecified osteoarthritis, unspecified site; F17.211 Nicotine dependence, cigarettes, in remission; Z79.899 Other long term (current) drug therapy; Z79.891 Long term (current) use of opiate analgesic
CPT/HCPCS: 96372; 99214; J1930

== ENCOUNTER 2020-07-27 14:13 | Outpatient (CLI) | payer MEDICARE, MEDICAID, SELFPAY ==
[2020-07-27 14:57] LABS: Basophils # 0.1 10^3/uL (0.0-0.1); Basophils % 0.5 %; Eosinophils % 0.3 %; Hematocrit 38.3 % (37.0-47.0); Hemoglobin 11.7 g/dL (11.5-15.3); Lymphocytes # 2.2 10^3/uL (0.8-4.8); Mean Corpuscular HGB Conc 30.5 g/dL (30.0-36.0); Mean Corpuscular Hemoglobin 28.3 pg (28.0-34.0); Mean Corpuscular Volume 92.5 fL (81-99); Mean Platelet Volume 9.8 fL (7.4-10.4); Monocytes # 0.7 10^3/uL (0.2-0.9); Monocytes % 6.4 %; Neutrophils # 7.38 10^3/uL (1.8-7.7); Neutrophils % 71.5 %; Nucleated Red Blood Cells % 0 %; Platelet Count 355 10^3/cmm (130-400); Red Blood Count 4.14 10^6/uL (4.1-5.3); Red Cell Distribution Width 14.8 % (12.1-15.1); White Blood Count 10.3 10^3/uL (4.0-10.0)
[2020-07-27 15:14] LABS: Alanine Aminotransferase 29 U/L (0-33); Albumin Level 4.3 g/dL (3.5-5.2); Alkaline Phosphatase 154 IU/L (35-105); Anion Gap 14.6 (5-19); Aspartate Amino Transferase 20 U/L (0-32); Blood Urea Nitrogen 17 mg/dL (8-23); Calcium 9.1 mg/dL (8.5-10.5); Carbon Dioxide 24 mmol/L (22-29); Chloride 102 mmol/L (98-107); Ferritin 75 ng/mL (15-150); Globulin 3.3 g/dL (1.3-4.6); Glomerular Filtration Rate 72.9 mL/min (90-130); Glucose 108 mg/dL (65-115); Iron 23 ug/dL (37-145); Osmolality Calculated 286 mOsm/kg (285-295); Percent Saturation 8.7 % (20-50); Potassium 3.6 mmol/L (3.5-5.1); Sodium 137 mmol/L (136-145); Total Bilirubin 0.2 mg/dL (0.15-1.2); Total Iron Binding Capacity 264 mcg/dl; Total Protein 7.6 g/dL (6.6-8.7); Unsaturated Iron Binding 241 ug/dL (112-347)
[2020-07-31 17:33] LABS: Chromogranin A 10510 ng/mL (25-140)
[2020-07-31 19:03] LABS: Serotonin Whole Blood 347 ng/mL (56-244)
== END 2020-07-27 14:14 | disposition home or self-care (01) ==
LOC: ONCMED 15:22
PROVIDERS: PCP Physician Assistant; Visit Provider Nurse Practitioner
DX: C7A.8 Other malignant neuroendocrine tumors (principal); C25.4 Malignant neoplasm of endocrine pancreas
CPT/HCPCS: 80053; 82728; 83540; 83550; 84260; 85025; 86316

== ENCOUNTER 2020-07-29 06:07 | Outpatient (CLI) | payer MEDICARE, MEDICAID, SELFPAY ==
[2020-07-29] MEDS: LANREOTIDE 120 MG/0.5 ML SUBCUT (16:30)
--- NOTE | 2020-07-29 20:02 | ONC FU_ITS ---
Dr. Dempsey Patient Follow-Up Note Patient: Genoveva Kerr Unit #: [id number]: 1960 Dicatated By: Timo Dempsey M.D.Date of Visit:Jul 29, 2020 Onc Med Follow-up/Prog Note Chief Complaint: Pancreatic neuroendocrine tumor. History of Present Illness: This is a 60 year-old woman with metastatic pancreatic neuroendocrine tumor, WHO grade 2, stage IV (T4, Nx, M1). She had been having intermittent diarrhea for 2 years. She had been feeling tired all the time, and she also complained of persistent cough. She had seen Dr. Varner, and in November 2014 she had evaluation with CT abdomen/pelvis which showed a 2.3 x 3.5 x 3.4 cm homogeneous enhancing mass which appeared inseparable from the superior surface of the body of the pancreas. It was noted to abut the anterior margin of the celiac artery and anterior/superior margins of the common hepatic artery and splenic artery. The right hepatic lobe was noted to be enlarged, but there were no focal defects in the liver. Left adrenal gland showed a probable 9 mm adenoma. There was a 13 mm subpleural nodule in the anterior right lower lobe of uncertain significance. She was referred to Dr. Hare in [place]. Her subsequent evaluation included EUS in December, which apparently did confirm pancreatic neuroendocrine tumor. She had further evaluation with MRI, which showed 2 lesions in the liver, one of which showed typical findings of hemangioma. The other was felt to be possibly hemangioma versus possible metastatic lesion. There was no other evidence to suggest metastatic involvement. After discussion with patient, plan was made to proceed with subtotal left pancreatectomy with resection of the celiac arcade. In preparation for the procedure, she underwent endovascular coil occlusion of the common hepatic, proximal splenic, and distal celiac arteries on 04/05/2015. On 05/11/2015 she underwent exploratory laparotomy. At that time, she was noted to have a white nodule on the anterior surface of the stomach. It was located at the pylorus, and it measured 2 cm. It was removed by gastric wedge biopsy. Frozen section was consistent with neuroendocrine tumor. A needle core biopsy of the pancreas was obtained, but no further resection was attempted. Final pathology showed well-differentiated neuroendocrine tumor on both the gastric biopsy and the needle core biopsy of the pancreas. The Ki-67 on a pancreatic biopsy showed a labeling index of 3%, qualifying for WHO grade 2. I had seen her initially on 06/04/2015. At that time she complained of significant fatigue and she still had intermittent diarrhea. Her weight at that point was still down 25 lbs. She also reported having persistent cough, and she complained of having hot flashes and occasional sweating. Her subsequent laboratory evaluation did show a slightly elevated chromogranin A level at 11 nmol/L, normal range 0-5. VIP level was normal less than 13 pg/mL. 24-hour urine 5-HIAA also was normal at 4 mg, normal range up to 15 mg. Initially she was followed on observation/symptomatic management. She had hospital admissions with abdominal pain and nausea/vomiting in August 2015 and in January 2016, but there was no evidence of bowel obstruction and there was no obvious disease progression. As of March 2018 she had developed more typical carcinoid symptoms, and her CT abdomen/pelvis showed interval enlargement of the hepatic mass with development of new upper abdominal retroperitoneal and matias hepatis adenopathy. In May 2018 she began treatment with Somatuline Depot 120 mg monthly[address] scans of the chest, abdomen, and pelvis on 04/04/2019 showed resolution of previously described pulmonary nodules. The abdomen/pelvis showed slight increase in the abdominal mass measuring 6.4 x 8.1 x 9.55 cm. It was reported to be in the left lobe of the liver, but it actually reflected the pancreatic neoplasm impinging on the liver. There were no other apparent areas of involvement. She continued treatment with somatuline on a monthly schedule. Her medical illnesses are otherwise limited to COPD and degenerative arthritis. She does have a history of smoking 1 pack of cigarettes daily for 20 years. She quit smoking in April 2015. INTERIM HISTORY: Restaging CT scans on 03/03/2020 showed stable noncalcified subcentimeter pulmonary nodules. Borderline enlarged right hilar lymph node measuring 10 mm also appeared stable. There was interval increase in the size of the large left hepatic mass measuring 7.8 x 9.7 x 8.8 cm. There was slightly progressed upper abdominal and aortocaval lymphadenopathy, the largest aortocaval lymph node measuring 18 mm. There was no evidence of other metastatic disease. As of her follow-up visit on 06/28/2020 there was a significant increase in the chromogranin A level, to 10,335 ng/mL, compared to 4328 ng/mL in April 2019 and to 1912 ng/mL in August 2018. With those findings, and with the changes on the CT scan, she was given the option to begin a trial of therapy with everolimus. She was able to start treatment just within the past 2 weeks. She is seen for a follow-up visit. She has not been feeling good. She seems to be tolerating the everolimus very poorly. She says she is out of it for 3 days whenever she takes it. She is still doing light work at home. Her ECOG score is 1. Her appetite is still been okay. She does not have fever, night sweats, or flushing episodes. She has sinus drainage and she has again developed productive cough and shortness of breath. She does not complain of chest pain. She has had some nausea and she has been having acid reflux. Bowels have been okay. She has not had any diarrhea. Bladder function has been a little better lately. She complains of pain in her lower back and hips. It is still managed adequately with hydrocodone/APAP. She sometimes has headache and she does tend to have lightheadedness. She has no focal neurologic symptoms. Medications: Advair Diskus 1 (250-50 mcg/dose) Aerosol Powder, Breath Activated Inhalation b.i.d., [facility] Vitamin C 1 - 2 Tablet (of 500 mg) Tablet, chewable Oral daily, Hydrocodone-Acetaminophen 1 (10-325 mg) Tablet Oral q 4 hours PRN, Pantoprazole Sodium 1 Tablet (of 40 mg) Tablet Delayed Release Oral daily PRN Allergies: Codeine Sulfate Vital Signs: Performed on Jul 29, 2020 15:51 Height - 64.00 in Weight - 125 lbs (LOW) BSA - 1.60 sq.m BMI - 21.46 Temperature - 96.8 F (LOW) Pulse - 95 /min Respiration - 21 /min BP - 147/92 mm(hg) (HIGH) O2 Sat - 96 % Pain - 10 Physical Examination: Constitutional - She appears somewhat weak generally, Eyes - Sclerae nonicteric. Conjunctivae clear, ENMT - No lesions noted in the oral cavity, Hematologic/Lymphatic - No cervical, clavicular, or axillary adenopathy, Respiratory - Lungs show diminished air movement bilaterally. There are scattered rales bilaterally, more prominent on the left, Cardiovascular - Heart rhythm is regular. There is no murmur, gallop, or rub noted, Abdomen - Mildly distended. There is tenderness in the upper abdomen. There is firmness in the medial aspect of the right upper quadrant, consistent with underlying mass. Liver does not appear to be overtly enlarged. Spleen is not palpable. There is no obvious ascites. There is no inguinal adenopathy noted, Extremities - No edema, Integumentary - No skin eruption, Neurologic - There are no focal neurologic deficits noted. Lab/Imaging: Test performed on Jun 28, 2020 15:55 WBC 10.3 10 3/uL RBC 4.96 10 6/uL HGB 14.1 g/dL HCT 44.7 % MCV 90.1 fL MCH 28.4 pg MCHC 31.5 g/dL RDW 15.0 % Platelet Count 468 10 3/cmm MPV 10.4 fL Neutrophils 6.84 10 3/uL Lymphocytes 2.9 10 3/uL Monocytes 0.4 10 3/uL Eosinophils 0.0 10 3/uL Basophils 0.1 10 3/uL Neutrophil % 66.5 % Lymphocyte % 28.6 % Monocyte % 3.9 % Eosinophil % 0.1 % Basophils % 0.7 % NRBC % 0 % Problem List: 1. Well differentiated pancreatic neuroendocrine tumor, WHO grade 2, stage IV (T4, Nx, M1). She underwent endovascular coil embolization to common hepatic, proximal splenic, and distal celiac arteries on 04/05/2015 followed by exploratory laparotomy with gastric wedge biopsy and needle core biopsy of the pancreas on 05/11/2015. 2. She has significant anxiety/depression/emotional lability. 3. She also has signicant underlying COPD. 4. Degenerative arthritis. 5. Tobacco dependence (cigarettes), in remission. Problems Addressed with this Encounter and Plan: 1. Well differentiated pancreatic neuroendocrine tumor, WHO grade 2, stage IV (T4, Nx, M1). She underwent endovascular coil embolization to common hepatic, proximal splenic, and distal celiac arteries on 04/05/2015 followed by exploratory laparotomy with gastric wedge biopsy and needle core biopsy of the pancreas on 05/11/2015. She then had a long period of stability. In May 2018 she began treatment with Somatuline Depot 120 mg monthly due to CT evidence of enlarging hepatic mass and development of new upper abdominal and matias hepatis adenopathy. During further follow-up there was gradual further increase in her neuroendocrine tumor markers and there was evidence of further disease progression by CT scan in March 2020. In July 2020 she began treatment with everolimus 10 mg daily. Thus far she has tolerated it poorly. She is due today for her monthly Somatuline Depot injection, and that will be administered at her usual dosage of 120 mg. The everolimus will be put on hold, at least for now. She will be scheduled for a return visit in 1 week. 2. She also has signicant underlying COPD. She has symptoms of acute bronchitis and COPD exacerbation. She will be treated empirically with Levaquin 500 mg daily for 7 days. 3. She has chronic pain. At least some of this is likely to be tumor related. It is managed adequately with hydrocodone/APAP. Signed By: Timo Dempsey M.D. <<Signature on File>>
== END 2020-07-29 06:08 | disposition home or self-care (01) ==
LOC: ONCMED 06:09
PROVIDERS: PCP Physician Assistant; Visit Provider Internal Medicine Medical Oncology
DX: C7A.8 Other malignant neuroendocrine tumors (principal); J44.0 Chronic obstructive pulmonary disease with (acute) lower respiratory infection; J44.1 Chronic obstructive pulmonary disease with (acute) exacerbation; G89.29 Other chronic pain; Z79.899 Other long term (current) drug therapy
CPT/HCPCS: 96372; 99214; J1930

== ENCOUNTER 2020-08-04 07:44 | Outpatient (CLI) | payer MEDICARE, MEDICAID, SELFPAY ==
--- NOTE | 2020-08-15 15:57 | ONC FU_ITS ---
[facility] Patient Note Patient: Genoveva Kerr Unit #: [id number]: 1960 Dictated By: Bud MendozaDate of Visit: Aug 04, 2020 Onc MED Follow-Up/Prog Note Chief Complaint: Pancreatic neuroendocrine tumor. History of Present Illness: Ms Kahn is a 60 year-old woman with metastatic pancreatic neuroendocrine tumor, WHO grade 2, stage IV (T4, Nx, M1). She had been having intermittent diarrhea for 2 years. She had been feeling tired all the time, and she also complained of persistent cough. She had seen Dr. Varner, and in November 2014 she had evaluation with CT abdomen/pelvis which showed a 2.3 x 3.5 x 3.4 cm homogeneous enhancing mass which appeared inseparable from the superior surface of the body of the pancreas. It was noted to abut the anterior margin of the celiac artery and anterior/superior margins of the common hepatic artery and splenic artery. The right hepatic lobe was noted to be enlarged, but there were no focal defects in the liver. Left adrenal gland showed a probable 9 mm adenoma. There was a 13 mm subpleural nodule in the anterior right lower lobe of uncertain significance. She was referred to Dr. Hare in [place]. Her subsequent evaluation included EUS in December, which apparently did confirm pancreatic neuroendocrine tumor. She had further evaluation with MRI, which showed 2 lesions in the liver, one of which showed typical findings of hemangioma. The other was felt to be possibly hemangioma versus possible metastatic lesion. There was no other evidence to suggest metastatic involvement. After discussion with patient, a plan was made to proceed with subtotal left pancreatectomy with resection of the celiac arcade. In preparation for the procedure, she underwent endovascular coil occlusion of the common hepatic, proximal splenic, and distal celiac arteries on 04/05/2015. On 05/11/2015 she underwent exploratory laparotomy. At that time, she was noted to have a white nodule on the anterior surface of the stomach. It was located at the pylorus, and it measured 2 cm. It was removed by gastric wedge biopsy. Frozen section was consistent with neuroendocrine tumor. A needle core biopsy of the pancreas was obtained, but no further resection was attempted. Final pathology showed well-differentiated neuroendocrine tumor on both the gastric biopsy and the needle core biopsy of the pancreas. The Ki-67 on a pancreatic biopsy showed a labeling index of 3%, qualifying for WHO grade 2. Dr Dempsey had seen her initially on 06/04/2015. At that time she complained of significant fatigue and she still had intermittent diarrhea. Her weight at that point was still down 25 lbs. She also reported having persistent cough, and she complained of having hot flashes and occasional sweating. Her subsequent laboratory evaluation did show a slightly elevated chromogranin A level at 11 nmol/L, normal range 0-5. VIP level was normal less than 13 pg/mL. 24-hour urine 5-HIAA also was normal at 4 mg, normal range up to 15 mg. Initially she was followed on observation/symptomatic management. She had hospital admissions with abdominal pain and nausea/vomiting in August 2015 and in January 2016, but there was no evidence of bowel obstruction and there was no obvious disease progression. As of March 2018 she had developed more typical carcinoid symptoms, and her CT abdomen/pelvis showed interval enlargement of the hepatic mass with development of new upper abdominal retroperitoneal and matias hepatis adenopathy. In May 2018 she began treatment with Somatuline Depot 120 mg [address] scans of the chest, abdomen, and pelvis on 04/04/2019 showed resolution of previously described pulmonary nodules. The abdomen/pelvis showed slight increase in the abdominal mass measuring 6.4 x 8.1 x 9.55 cm. It was reported to be in the left lobe of the liver, but it actually reflected the pancreatic neoplasm impinging on the liver. There were no other apparent areas of involvement. She continued treatment with somatuline on a monthly schedule. Her medical illnesses are otherwise limited to COPD and degenerative arthritis. She does have a history of smoking 1 pack of cigarettes daily for 20 years. She quit smoking in April 2015. INTERIM HISTORY: Restaging CT scans on 03/03/2020 showed stable noncalcified subcentimeter pulmonary nodules. Borderline enlarged right hilar lymph node measuring 10 mm also appeared stable. There was interval increase in the size of the large left hepatic mass measuring 7.8 x 9.7 x 8.8 cm. There was slightly progressed upper abdominal and aortocaval lymphadenopathy, the largest aortocaval lymph node measuring 18 mm. There was no evidence of other metastatic disease. As of her follow-up visit on 06/28/2020 there was a significant increase in the chromogranin A level, to 10,335 ng/mL, compared to 4328 ng/mL in April 2019 and to 1912 ng/mL in August 2018. With those findings, and with the changes on the CT scan, she was given the option to begin a trial of therapy with everolimus. She was able to start treatment just within the past 2 weeks. She was seen by Dr Dempsey for a follow-up visit on 07/29/2020. She had not been feeling good. She seemed to be tolerating the everolimus very poorly. She reported she was out of it for 3 days whenever she would take it . The everolimus was stoped and she is here today for followup. She is accompanied by her unoffically adopted daughter , who is also her caregiver. She states she is feeling better and wants to resume the everolimus. She states she wants to try it at every other or every 3rd day and gradually increase it as she can tolerate it. She states she feels pretty good overall. She denies any fever or chills. She had no night sweats or weight loss. She has intermittent diarrhea when she misses her shot too much. She states her appetite is fair for her. Her energy is about the same as always. She is able to do all her ADLs without any assistance. She denies any new concerns with her bowel or bladder is. She denies any pain. Her ECOG is 2. She does report that she is planning to take a trip in September and will be gone for 2 months and wondered if it would be a big deal for her missing her somatuline shot. We discussed that missing her shots she will likely have more diarrhea problems but she states she thinks she can put up with that her manage that. Past Medical History: Chronic obstructive pulmonary disease Degenerative arthritis Past Surgical History: Flu vaccine in 2016 Exploratory laparotomy with gastric wedge biopsy and needle core biopsy of the pancreas in 2015 Endovascular coil occlusion of common hepatic, proximal splenic, and distal celiac arteries in 2015 Allergies: Codeine Sulfate Medications: Advair Diskus 1 (250-50 mcg/dose) Aerosol Powder, Breath Activated Inhalation b.i.d. [facility] Vitamin C 1 - 2 Tablet (of 500 mg) Tablet, chewable Oral daily Hydrocodone-Acetaminophen 1 (10-325 mg) Tablet Oral q 4 hours PRN Pantoprazole Sodium 1 Tablet (of 40 mg) Tablet Delayed Release Oral daily PRN Family History: Ms. Kerr's mother is alive. Ms. Kerr's father is alive. Ms. Kerr has 1 brother who is alive. She has 1 sister who is alive. Family history is unremarkable. Social History: Ms. Kerr is single and she is unemployed. Ms. Kerr no longer smokes but had smoked 1.0 pack/day for 21 years. She has no history of drinking. Ms. Kerr reports the following support systems: lives in own house, supportive family/friends willing to assist with needs, and adequate transportation available for expected visits. Her diet consists of regular meals. She indicates her activity level as: daily activities. Review Of Symptoms: Constitutional Denies fevers, chills, night sweats, excessive fatigue or weight loss. Allergic/Immunologic No reactions. ENMT Denies changes in hearing, sore throat, mouth sores, difficulty or changes in swallowing ability, and/or sinus drainage. Hematologic/Lymphatic Denies easy bruising or bleeding. The patient denies any tender or palpable lymph nodes. Respiratory Some dyspnea on exertion-chronic. Denies chest pain, or hemoptysis. Denies orthopnea. Cardiovascular Denies anginal chest pain, palpitations or orthopnea. Gastrointestinal Has had some increased diarrhea-slows down with Imodium but returns when med wears off. Genitourinary (F) No hematuria, hesitancy, incontinence, vaginal bleeding, discharge or other problems with urination. Musculoskeletal Denies joint pain, swelling or redness. No decreased range of motion. Integumentary Denies chronic rashes, inflammation, ulcerations or skin changes. Neurologic Denies headache, blurred vision, and no areas of focal weakness or numbness. Dizziness as above. Psychiatric Denies depression, mi or mood swings. Vital Signs: Performed on Aug 04, 2020 14:04 Height - 64.00 in Weight - 127.6 lbs (HIGH) BSA - 1.62 sq.m BMI - 21.90 Temperature - 97.6 F (LOW) Pulse - 72 /min Respiration - 19 /min BP - 139/58 mm(hg) O2 Sat - 98 % Pain - 5,2 - Ambulatory/capable of all self-care, unable to perform any work activities. Up and about more than 50% of waking hours. (ECOG) Physical Examination: Constitutional Alert, oriented, no acute distress. Skin pink, warm and dry. Head Normocephalic; atraumatic. Eyes Conjunctivae and sclerae are clear and without icterus. Pupils are reactive and equal. ENMT Sinuses are nontender. No oral exudates, ulcers, masses, thrush or mucositis. Oropharynx clear. Tongue normal. Neck Supple without masses or thyromegaly. No jugular venous distension. Respiratory Lungs are clear to auscultation without rhonchi or wheezing. Cardiovascular Regular rate and rhythm of heart without murmurs,clicks, gallops or rubs. Abdomen Non-tender, non-distended, no masses, ascites or hepatosplenomegaly. Good bowel sounds noted in all quads. No guarding or rebound tenderness. No pulsatile masses. Back/Spine Non-tender to palpation. Extremities No visible deformities, no cyanosis, clubbing or edema. Musculoskeletal No tenderness or swelling, normal range of motion without obvious weakness. Integumentary No rashes or lesions. Neurologic No sensory or motor deficits, normal cerebellar function, normal gait. Psychiatric Alert and oriented times three. Coherent speech. Verbalizes understanding of our discussions today. Laboratory:Test performed on Jun 28, 2020 15:55 WBC 10.3 10 3/uL RBC 4.96 10 6/uL HGB 14.1 g/dL HCT 44.7 % MCV 90.1 fL MCH 28.4 pg MCHC 31.5 g/dL RDW 15.0 % Platelet Count 468 10 3/cmm MPV 10.4 fL Neutrophils 6.84 10 3/uL Lymphocytes 2.9 10 3/uL Monocytes 0.4 10 3/uL Eosinophils 0.0 10 3/uL Basophils 0.1 10 3/uL Neutrophil % 66.5 % Lymphocyte % 28.6 % Monocyte % 3.9 % Eosinophil % 0.1 % Basophils % 0.7 % NRBC % 0 % Impression: 1. Well differentiated pancreatic neuroendocrine tumor, WHO grade 2, stage IV (T4, Nx, M1). She underwent endovascular coil embolization to common hepatic, proximal splenic, and distal celiac arteries on 04/05/2015 followed by exploratory laparotomy with gastric wedge biopsy and needle core biopsy of the pancreas on 05/11/2015. 2. She has significant anxiety/depression/emotional lability. 3. She also has signicant underlying COPD. 4. Degenerative arthritis. 5. Tobacco dependence (cigarettes), in remission. Plan: 1. Well differentiated pancreatic neuroendocrine tumor, WHO grade 2, stage IV (T4, Nx, M1). She underwent endovascular coil embolization to common hepatic, proximal splenic, and distal celiac arteries on 04/05/2015 followed by exploratory laparotomy with gastric wedge biopsy and needle core biopsy of the pancreas on 05/11/2015. She then had a long period of stability. In May 2018 she began treatment with Somatuline Depot 120 mg monthly due to CT evidence of enlarging hepatic mass and development of new upper abdominal and matias hepatis adenopathy. During further follow-up there was gradual further increase in her neuroendocrine tumor markers and there was evidence of further disease progression by CT scan in March 2020. A. In July 2020 she began treatment with everolimus 10 mg daily. She was instructed to stop it on 07/29/2020 due to poor tolerance. She is willing to try it again at an every other day or every 3rd day timing. She will call if she has intolerance and we will see if can obtain a lower dose. B. She also being treated with monthly Somatuline Depot injection at 120 mg. Her last dose was given on July 29, 2020. C. Her labs from July 27, 2020 reviewed in detail discussed with her and her caregiver and a copy was given to her. WBC 10.3, hemoglobin 11.7, platelets 355,000 ANC was 7400. Potassium 3.6 random glucose 108 creatinine 0.6 LFTs were normal her iron sat is 23 and her ferritin was 75 iron saturation was 8.7. Her chromogranin A level was 10,510 which is up from 06/28/2020 at which time it was 10,003 and 35. January 28, 2020 her chromogranin a level was 5794. 2. She also has signicant underlying COPD. She had symptoms of acute bronchitis and COPD exacerbation at her last visit.. She has had resolution of the acute bronchitis symptoms with Levaquin 500 mg daily for 7 days. 3. She has chronic pain. At least some of this is likely to be tumor related. It is managed adequately with hydrocodone/APAP. Her last prescription fill it was on July 05, 2020 and she is requesting a written prescription today. This will be authorized per Dr. Dempsey's written prescriptions. 4. Follow-up plan we will see her back in 3 weeks with CBC CMP chromogranin A level. She will be due for her somatuline depot injection at that time. Signed By: Bud Mendoza-, AOCNP Timo Dempsey MD <<Signature on File>>
== END 2020-08-04 07:45 | disposition home or self-care (01) ==
LOC: ONCMED 07:46
PROVIDERS: PCP Physician Assistant; Visit Provider Nurse Practitioner
DX: C7A.8 Other malignant neuroendocrine tumors (principal); F41.9 Anxiety disorder, unspecified; F32.9 Major depressive disorder, single episode, unspecified; R45.86 Emotional lability; J44.9 Chronic obstructive pulmonary disease, unspecified; M19.90 Unspecified osteoarthritis, unspecified site; F17.211 Nicotine dependence, cigarettes, in remission; Z79.890 Hormone replacement therapy
CPT/HCPCS: 99214

== ENCOUNTER 2020-09-06 13:30 | Outpatient (CLI) | payer MEDICARE, MEDICAID, SELFPAY ==
[2020-09-06 14:32] LABS: Basophils # 0.1 10^3/uL (0.0-0.1); Basophils % 0.6 %; Eosinophils % 0.3 %; Hematocrit 43.2 % (37.0-47.0); Hemoglobin 13.4 g/dL (11.5-15.3); Lymphocytes # 2.6 10^3/uL (0.8-4.8); Lymphocytes % 26.1 %; Mean Corpuscular Hemoglobin 27.7 pg (28.0-34.0); Mean Corpuscular Volume 89.4 fL (81-99); Mean Platelet Volume 9.6 fL (7.4-10.4); Monocytes # 0.5 10^3/uL (0.2-0.9); Monocytes % 4.8 %; Neutrophils % 67.9 %; Nucleated Red Blood Cells % 0 %; Platelet Count 377 10^3/cmm (130-400); Red Blood Count 4.83 10^6/uL (4.1-5.3); Red Cell Distribution Width 14.8 % (12.1-15.1); White Blood Count 9.9 10^3/uL (4.0-10.0)
[2020-09-06 14:51] LABS: Alanine Aminotransferase 47 U/L (0-33); Albumin Level 4.2 g/dL (3.5-5.2); Alkaline Phosphatase 178 IU/L (35-105); Anion Gap 16.4 (5-19); Aspartate Amino Transferase 31 U/L (0-32); Blood Urea Nitrogen 14 mg/dL (8-23); Calcium 9.3 mg/dL (8.5-10.5); Carbon Dioxide 25 mmol/L (22-29); Chloride 104 mmol/L (98-107); Globulin 3.6 g/dL (1.3-4.6); Glomerular Filtration Rate 72.9 mL/min (90-130); Glucose 90 mg/dL (65-115); Osmolality Calculated 292 mOsm/kg (285-295); Potassium 4.4 mmol/L (3.5-5.1); Sodium 141 mmol/L (136-145); Total Bilirubin 0.2 mg/dL (0.15-1.2); Total Protein 7.8 g/dL (6.6-8.7)
[2020-09-06] MEDS: LANREOTIDE 120 MG/0.5 ML SUBCUT (15:45)
--- NOTE | 2020-09-06 16:07 | ONC FU_ITS ---
Esteban Sifuentes Patient Note Patient: Genoveva Kerr Unit #: [id number]: 1960 Dictated By: Bud MendozaDate of Visit: Sep 06, 2020 Onc MED Follow-Up/Prog Note Chief Complaint: Pancreatic neuroendocrine tumor. History of Present Illness: Ms Kahn is a 60 year-old woman with metastatic pancreatic neuroendocrine tumor, WHO grade 2, stage IV (T4, Nx, M1). She had been having intermittent diarrhea for 2 years. She had been feeling tired all the time, and she also complained of persistent cough. She had seen Dr. Varner, and in November 2014 she had evaluation with CT abdomen/pelvis which showed a 2.3 x 3.5 x 3.4 cm homogeneous enhancing mass which appeared inseparable from the superior surface of the body of the pancreas. It was noted to abut the anterior margin of the celiac artery and anterior/superior margins of the common hepatic artery and splenic artery. The right hepatic lobe was noted to be enlarged, but there were no focal defects in the liver. Left adrenal gland showed a probable 9 mm adenoma. There was a 13 mm subpleural nodule in the anterior right lower lobe of uncertain significance. She was referred to Dr. Hare in [place]. Her subsequent evaluation included EUS in December, which apparently did confirm pancreatic neuroendocrine tumor. She had further evaluation with MRI, which showed 2 lesions in the liver, one of which showed typical findings of hemangioma. The other was felt to be possibly hemangioma versus possible metastatic lesion. There was no other evidence to suggest metastatic involvement. After discussion with patient, a plan was made to proceed with subtotal left pancreatectomy with resection of the celiac arcade. In preparation for the procedure, she underwent endovascular coil occlusion of the common hepatic, proximal splenic, and distal celiac arteries on 04/05/2015. On 05/11/2015 she underwent exploratory laparotomy. At that time, she was noted to have a white nodule on the anterior surface of the stomach. It was located at the pylorus, and it measured 2 cm. It was removed by gastric wedge biopsy. Frozen section was consistent with neuroendocrine tumor. A needle core biopsy of the pancreas was obtained, but no further resection was attempted. Final pathology showed well-differentiated neuroendocrine tumor on both the gastric biopsy and the needle core biopsy of the pancreas. The Ki-67 on a pancreatic biopsy showed a labeling index of 3%, qualifying for WHO grade 2. Dr Dempsey had seen her initially on 06/04/2015. At that time she complained of significant fatigue and she still had intermittent diarrhea. Her weight at that point was still down 25 lbs. She also reported having persistent cough, and she complained of having hot flashes and occasional sweating. Her subsequent laboratory evaluation did show a slightly elevated chromogranin A level at 11 nmol/L, normal range 0-5. VIP level was normal less than 13 pg/mL. 24-hour urine 5-HIAA also was normal at 4 mg, normal range up to 15 mg. Initially she was followed on observation/symptomatic management. She had hospital admissions with abdominal pain and nausea/vomiting in August 2015 and in January 2016, but there was no evidence of bowel obstruction and there was no obvious disease progression. As of March 2018 she had developed more typical carcinoid symptoms, and her CT abdomen/pelvis showed interval enlargement of the hepatic mass with development of new upper abdominal retroperitoneal and matias hepatis adenopathy. In May 2018 she began treatment with Somatuline Depot 120 [address] scans of the chest, abdomen, and pelvis on 04/04/2019 showed resolution of previously described pulmonary nodules. The abdomen/pelvis showed slight increase in the abdominal mass measuring 6.4 x 8.1 x 9.55 cm. It was reported to be in the left lobe of the liver, but it actually reflected the pancreatic neoplasm impinging on the liver. There were no other apparent areas of involvement. She continued treatment with somatuline on a monthly schedule. Her medical illnesses are otherwise limited to COPD and degenerative arthritis. She does have a history of smoking 1 pack of cigarettes daily for 20 years. She quit smoking in April 2015. INTERIM HISTORY: Restaging CT scans on 03/03/2020 showed stable noncalcified subcentimeter pulmonary nodules. Borderline enlarged right hilar lymph node measuring 10 mm also appeared stable. There was interval increase in the size of the large left hepatic mass measuring 7.8 x 9.7 x 8.8 cm. There was slightly progressed upper abdominal and aortocaval lymphadenopathy, the largest aortocaval lymph node measuring 18 mm. There was no evidence of other metastatic disease. As of her follow-up visit on 06/28/2020 there was a significant increase in the chromogranin A level, to 10,335 ng/mL, compared to 4328 ng/mL in April 2019 and to 1912 ng/mL in August 2018. With those findings, and with the changes on the CT scan, she was given the option to begin a trial of therapy with everolimus. She was able to start treatment just within the past 2 weeks. She was seen by Dr Dempsey for a follow-up visit on 07/29/2020. She had not been feeling good. She seemed to be tolerating the everolimus very poorly. She reported she was out of it for 3 days whenever she would take it . The everolimus was stopped and she returned for followup on August 04, 2020. She was feeling better at that point and was agreeable to try resuming the everolimus. She is here today for 1 month follow-up. She is due for her octreotide today as well. She states she is had increased diarrhea for about a week now. This is been pretty persistent when she is due for the somatuline depot injection. She has been getting it for week intervals but states about week 3 she has significant problems with diarrhea. She states that she is able to tolerate the Affinitor she states she is taking 1/4 tablet of the 10 mg weekly but plans to increase to 1/2 tablet twice weekly as soon as possible. She states she cannot tolerate a full tablet at this time. I will request 2.5 mg tablets to make it easier to titrate her dosing. She states other than her diarrhea, she feels really good. She states she is eating good. She denies any fever or chills. She has not had any Covid vaccine. She is considering doing this when she goes to [place] to stay with her family for 2 months. Her current plan currently is to leave September 28. She plans to be there for 2 months. She is asking if we could find someone there to give her her octreotide injections while she is there. She has had some lower left quadrant pain but states that her bowels have gotten a little constipated because with her diarrhea she had taken an antidiarrheal medicine and got locked up for a day or 2 . Her stools have been somewhat loose over the last couple of days as this time for her injection. She denies any bladder issues. She denies any other concerns today. Her ECOG is 1 today. Past Medical History: Chronic obstructive pulmonary disease Degenerative arthritis Past Surgical History: Flu vaccine in 2016 Exploratory laparotomy with gastric wedge biopsy and needle core biopsy of the pancreas in 2014 Endovascular coil occlusion of common hepatic, proximal splenic, and distal celiac arteries in 2014 Allergies: Codeine Sulfate Medications: Advair Diskus 1 (250-50 mcg/dose) Aerosol Powder, Breath Activated Inhalation b.i.d. [facility] Vitamin C 1 - 2 Tablet (of 500 mg) Tablet, chewable Oral daily Hydrocodone-Acetaminophen 1 (10-325 mg) Tablet Oral q 4 hours PRN Pantoprazole Sodium 1 Tablet (of 40 mg) Tablet Delayed Release Oral daily PRN Family History: Ms. Kerr's mother is alive. Ms. Kerr's father is alive. Ms. Kerr has 1 brother who is alive. She has 1 sister who is alive. Family history is unremarkable. Social History: Ms. Kerr is single and she is unemployed. Ms. Kerr no longer smokes but had smoked 1.0 pack/day for 21 years. She has no history of drinking. Ms. Kerr reports the following support systems: lives in own house, supportive family/friends willing to assist with needs, and adequate transportation available for expected visits. Her diet consists of regular meals. She indicates her activity level as: daily activities. Review Of Symptoms: Constitutional Denies fevers, chills, night sweats, excessive fatigue or weight loss. Allergic/Immunologic No reactions. ENMT Denies changes in hearing, sore throat, mouth sores, difficulty or changes in swallowing ability, and/or sinus drainage. Hematologic/Lymphatic Denies easy bruising or bleeding. The patient denies any tender or palpable lymph nodes. Respiratory Some dyspnea on exertion-chronic/stable. Denies chest pain, or hemoptysis. Denies orthopnea. Cardiovascular Denies anginal chest pain, palpitations or orthopnea. Gastrointestinal Has had some increased diarrhea about 3 weeks from her last somatuline injection-slows down with Imodium but returns when med wears off. The diarrhea was worse this last interval. Genitourinary (F) No hematuria, hesitancy, incontinence, vaginal bleeding, discharge or other problems with urination. Musculoskeletal Denies joint pain, swelling or redness. No decreased range of motion. Integumentary Denies chronic rashes, inflammation, ulcerations or skin changes. Neurologic Denies headache, blurred vision, and no areas of focal weakness or numbness. Psychiatric Denies depression, mi or mood swings. Vital Signs: Performed on Sep 06, 2020 14:56 Height - 64.00 in Weight - 128.4 lbs (HIGH) BSA - 1.62 sq.m BMI - 22.04 Temperature - 97.8 F (LOW) Pulse - 81 /min Respiration - 18 /min BP - 107/68 mm(hg) O2 Sat - 98 % Pain - 3 Fatigue - 3,1 - No physically strenuous activity, but ambulatory and able to carry out light or sedentary work (e.g. office work, light house work). (ECOG) Physical Examination: Constitutional Alert, oriented, no acute distress. Skin pink, warm and dry. Very jovial today. Alone at the visit today. Head Normocephalic; atraumatic. Eyes Conjunctivae and sclerae are clear and without icterus. Pupils are reactive and equal. ENMT Sinuses are nontender. No oral exudates, ulcers, masses, thrush or mucositis. Oropharynx clear. Tongue normal. Neck Supple without masses or thyromegaly. No jugular venous distension. Respiratory Lungs are clear to auscultation without rhonchi or wheezing. Cardiovascular Regular rate and rhythm of heart without murmurs,clicks, gallops or rubs. Abdomen Non-tender, non-distended, no masses, ascites. Good bowel sounds noted in all quads. No guarding or rebound tenderness. No pulsatile masses. Back/Spine Non-tender to palpation. Extremities No visible deformities, no cyanosis, clubbing or edema. Musculoskeletal No tenderness or swelling, normal range of motion without obvious weakness. Integumentary No rashes or lesions. Neurologic No sensory or motor deficits, normal cerebellar function, normal gait. Psychiatric Alert and oriented times three. Coherent speech. Verbalizes understanding of our discussions today. Laboratory:Test performed on Sep 06, 2020 13:50 Sodium 141 mmol/L Potassium 4.4 mmol/L Chloride 104 mmol/L CO2 25 mmol/L Anion Gap 16.4 BUN 14 mg/dL Creatinine 0.8 mg/dL Cr Clearance (Est) 67.90 mL/min eGFR 72.9 mL/min Glucose 90 mg/dL Osmolality - Calculated 292 mOsm/kg Calcium 9.3 mg/dL Protein, Total 7.8 g/dL Albumin 4.2 g/dL Globulin 3.6 g/dL Bilirubin, Total 0.2 mg/dL ALT (SGPT) 47 U/L AST (SGOT) 31 U/L Alkaline Phosphatase 178 IU/L WBC 9.9 10 3/uL RBC 4.83 10 6/uL HGB 13.4 g/dL HCT 43.2 % MCV 89.4 fL MCH 27.7 pg MCHC 31.0 g/dL RDW 14.8 % Platelet Count 377 10 3/cmm MPV 9.6 fL Neutrophils 6.70 10 3/uL Lymphocytes 2.6 10 3/uL Monocytes 0.5 10 3/uL Eosinophils 0.0 10 3/uL Basophils 0.1 10 3/uL Neutrophil % 67.9 % Lymphocyte % 26.1 % Monocyte % 4.8 % Eosinophil % 0.3 % Basophils % 0.6 % NRBC % 0 % Impression: 1. Well differentiated pancreatic neuroendocrine tumor, WHO grade 2, stage IV (T4, Nx, M1). She underwent endovascular coil embolization to common hepatic, proximal splenic, and distal celiac arteries on 04/05/2015 followed by exploratory laparotomy with gastric wedge biopsy and needle core biopsy of the pancreas on 05/11/2015. 2. She has significant anxiety/depression/emotional lability. 3. She also has signicant underlying COPD. 4. Degenerative arthritis. 5. Tobacco dependence (cigarettes), in remission. Plan: 1. Well differentiated pancreatic neuroendocrine tumor, WHO grade 2, stage IV (T4, Nx, M1). She underwent endovascular coil embolization to common hepatic, proximal splenic, and distal celiac arteries on 04/05/2015 followed by exploratory laparotomy with gastric wedge biopsy and needle core biopsy of the pancreas on 05/11/2015. She then had a long period of stability. In May 2018 she began treatment with Somatuline Depot 120 mg monthly due to [address] evidence of enlarging hepatic mass and development of new upper abdominal and matias hepatis adenopathy. During further follow-up there was gradual further increase in her neuroendocrine tumor markers and there was evidence of further disease progression by CT scan in March 2020. A. In July 2020 she began treatment with everolimus 10 mg daily. She was instructed to stop it on 07/29/2020 due to poor tolerance. She was willing to try it again at an every other day or every 3rd day timing. She states she has been doing 2.5 mg once a week. I will request 2.5 mg tablets and is is motivated to try to increase to 5 mg twice weekly over the next few weeks. B. She also being treated with monthly Somatuline Depot injection at 120 mg. Her last dose was given on July 29, 2020. C. Her labs from September 06, 2020 reviewed in detail discussed with her and her caregiver and a copy was given to her. WBC 9.9, hemoglobin 13.4, platelets 377,000 ANC was 6700. Potassium 4.4 random glucose 90 creatinine 0.8 LFTs were normal. Her iron sat from July 2020 wais 23 and her ferritin was 75 iron saturation was 8.7. She is not anemic today. Her chromogranin A level on 07/29/2020 was 10,510 which is up from 06/28/2020 at which time it was 10,003 and 35. January 28, 2020 her chromogranin a level was 5794. It is pending at today's visit. D. Her last CT imaging was on 03/03/2020. The patient was a few noncalcified subcentimeter pulmonary nodules are stable. No evidence of progressive disease in the chest. Stable enlarged right hilar lymph node measuring 10 mm. Interval increase in the size of the large left hepatic mass measuring 7.8 x 9.7 x 8.8 cm mass-effect on the left hepatic lobe. Slightly progressed upper abdominal and aortocaval lymphadenopathy in the largest aortocaval measuring 18 mm. Fliud distended gallbladder. Calcified multi fibroid uterus . D. We discussed at length her chromogranin a levels that they are increasing. It is likely that just taking Afinitor 1 time a week is not going to decrease her levels much and this motivates her to try to increase it to 2.5 mg twice weekly and gradually a daily dosing. 2. She also has signicant underlying COPD. She had symptoms of acute bronchitis and COPD exacerbation. Stable at present. 3. She has chronic pain. At least some of this is likely to be tumor related. It is managed adequately with hydrocodone/APAP. Her last prescription fill it was on August 30, 2020. This was authorized per Dr. Dempsey's written prescription. 4. Follow-up plan we will see her back in 3 months with CBC CMP, serotonin level and chromogranin A level. She will be due for her somatuline depot injection at that time. A. I have asked that she return in 3 weeks for repeat octreotide injection as she is having significant side effects including increased diarrhea if she waits a full 4 weeks. She is unable to tolerate full dosing of the Afinitor which I do feel would help with her symptoms. She is attempting to slowly increase it as well. Our goal is to get her on daily dosing if at all tolerated. Her main complaint with the Afinitor as it is wiped her out for 2 to 3 days after she takes it. She states she is just weak and does cannot do anything . I am hoping that while in [place] under the care of her family she will be able to tolerate this some better and gradually increase to at least 3-4 times weekly if not daily. I am going to request 2.5 mg tablets and hopefully we can gradually increased from that dosing in the future. B. She is planning to visit her sister in [place] for 2 months. She is leaving September 28, 2020. We will plan to see her on her return. She will be visiting the [facility] area and is looking to see if it is possible to have someone give her her injections while she is there. Her family has given this information to try to set her up with treatment at the [facility] in [place], [place]. They state that is about an hour from where she will actually be staying. C. Ms. Kerr has been encouraged to contact us in the interim should questions or problems arise. Signed By: Bud Mendoza-, AOCNP Timo Dempsey MD<<Signature on File>>
[2020-09-10 10:57] LABS: Chromogranin A 9317 ng/mL (25-140)
== END 2020-09-06 13:31 | disposition home or self-care (01) ==
LOC: ONCMED 13:32
PROVIDERS: PCP Physician Assistant; Visit Provider Nurse Practitioner
DX: C7A.8 Other malignant neuroendocrine tumors (principal); J44.9 Chronic obstructive pulmonary disease, unspecified; K52.89 Other specified noninfective gastroenteritis and colitis; R91.8 Other nonspecific abnormal finding of lung field; G89.3 Neoplasm related pain (acute) (chronic); F17.211 Nicotine dependence, cigarettes, in remission; Z51.81 Encounter for therapeutic drug level monitoring; Z79.899 Other long term (current) drug therapy; Z79.891 Long term (current) use of opiate analgesic
CPT/HCPCS: 36415; 80053; 85025; 86316; 96372; 99215; J1930

== ENCOUNTER 2020-09-27 06:16 | Outpatient (CLI) | payer MEDICARE, MEDICAID, SELFPAY ==
[2020-09-27] MEDS: LANREOTIDE 120 MG/0.5 ML SUBCUT (15:50)
== END 2020-09-27 06:17 | disposition home or self-care (01) ==
LOC: ONCMED 06:18
PROVIDERS: PCP Physician Assistant; Visit Provider Nurse Practitioner
DX: C7A.8 Other malignant neuroendocrine tumors (principal)
CPT/HCPCS: 96372; J1930